=== PATIENT | male | born 1970 | race Caucasian/White ===

== ENCOUNTER 2017-11-28 18:36 | Emergency (ER) | payer MEDICAID ==
[2017-11-28] MEDS ORDERED: Bupivacaine 0.5% 30 ML SDV INFILT ONE (18:37)
[2017-11-28] MEDS ORDERED: Ketorolac 60 MG/2 ML SDV IM STA (18:38)
[2017-11-28] MEDS ORDERED: Morphine 4 MG/ML Syringe IVPUSH ONE ×2 (18:45→20:26)
[2017-11-28] MEDS ORDERED: Iopamidol 755 Mg/ML 100 ML Bottle IV ONE (18:49)
[2017-11-28] MEDS ORDERED: Ketorolac 30 MG/ML SDV IVPUSH ONE (18:51)
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
[2017-11-28] MEDS ORDERED: Sodium Chloride 0.9% 1,000 ML IV SCH (19:00)
[2017-11-28 22:07] VITALS: BP 195/107
[2017-11-28] MEDS ORDERED: Acetaminophen/oxyCODONE 325-5 MG Tab PO ONE (23:13)
[2017-11-28] MEDS ORDERED: Azithromycin 250 MG Tab PO ONE (23:13)
== END 2017-11-28 23:25 | disposition home or self-care (01) ==
LOC: FB.ED 18:36
DX: S02.2XXA Fracture of nasal bones, initial encounter for closed fracture (principal); S12.501A Unspecified nondisplaced fracture of sixth cervical vertebra, initial encounter for closed fracture; S01.21XA Laceration without foreign body of nose, initial encounter; S63.072A Subluxation of distal end of left ulna, initial encounter; S43.401A Unspecified sprain of right shoulder joint, initial encounter; E87.1 Hypo-osmolality and hyponatremia; J32.4 Chronic pansinusitis; F17.210 Nicotine dependence, cigarettes, uncomplicated; Z88.5 Allergy status to narcotic agent; W13.2XXA Fall from, out of or through roof, initial encounter
CPT/HCPCS: 12051; 36415; 70450; 70486; 71260; 72125; 72128; 72131; 73110-LT; 74177; 80048; 80305; 81001; 82550; 85025; 93005; 96361; 96374; 96375; 96376; 99285; A9270-GY; G0480; J1885; J2270; J7030; Q9967

== ENCOUNTER 2017-12-01 16:46 | Emergency (ER) | payer MEDICAID ==
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
[2017-12-01 17:18] VITALS: BP 169/82
[2017-12-01] MEDS ORDERED: Acetaminophen/HYDROcodone 325-5 MG Tab PO ONE (17:27)
== END 2017-12-01 17:40 | disposition home or self-care (01) ==
LOC: FB.ED 16:46
DX: S60.512A Abrasion of left hand, initial encounter (principal); S63.07 Subluxation and dislocation of distal end of ulna; F17.210 Nicotine dependence, cigarettes, uncomplicated; Z88.6 Allergy status to analgesic agent; X58.XXXA Exposure to other specified factors, initial encounter
CPT/HCPCS: 99282; A9270

== ENCOUNTER 2018-12-19 21:16 | Emergency (ER) | payer MEDICAID, OTHER ==
[2018-12-19] MEDS ORDERED: Lidocaine 1% 20 ML MDV INFILT ONE (21:17)
--- NOTE | 2018-12-19 23:00 | EDM.PDOC ---
ED HPI GENERAL MEDICAL PROBLEM - General Chief Complaint: Skin Complaint Stated Complaint: CYST ON THIGH Time Seen by Provider: 12/19/18 22:35 Source of Information: Reports: Patient History Limitations: Reports: No Limitations - History of Present Illness INITIAL COMMENTS - FREE TEXT/NARRATIVE: 48-year-old male who reports about a week ago developed swelling, redness and pain over his right medial thigh. This area has gotten bigger and more painful with time. He reports initially that there was some drainage from the area but now there is no more drainage and it has gotten progressively bigger and more painful as time. He reports pain as an 8/10 at present. The pain is a sharp, aching and throbbing pain He's had no fever. He's had no nausea or vomiting. He does have diabetes mellitus, on metformin and reports that his blood sugars of been in the 100 range when he checks them. He reports he just checked his blood sugar this morning. There are no other associated signs or symptoms. There are no other modifying factors. 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: Other (see below) (Nothing) inner right thigh Pain Score (Numeric/FACES): 7 - Related Data Allergies Allergy/AdvReac Type Severity Reaction Status Date / Time tramadol Allergy Rash Verified 12/19/18 21:28 Home Meds: Home Meds Aspirin [Lo-Dose Aspirin EC] 81 mg PO DAILY 12/19/18 [History] Doxycycline Hyclate 100 mg PO BID 10 Days #20 tablet 12/19/18 [Rx] Lisinopril 10 mg PO DAILY 12/19/18 [History] metFORMIN [Glucophage] 500 mg PO BID 12/19/18 [History] traMADol [Ultram] 50 mg PO TID PRN 12/19/18 [History] Past Medical History HEENT History: Reports: Other (See Below) Other HEENT History: poor dentition Musculoskeletal History: Reports: Back Pain, Chronic Endocrine/Metabolic History: Reports: Diabetes, Type II - Past Surgical History GI Surgical History: Reports: Cholecystectomy, Hernia, Inguinal Musculoskeletal Surgical History: Reports: Other (See Below) (Left wrist surgery ) Other Musculoskeletal Surgeries/Procedures:: BACK INJECTION Social & Family History - Tobacco Use Smoking Status *Q: Current Every Day Smoker Years of Tobacco use: 35 Packs/Tins Daily: 1 - Caffeine Use Caffeine Use: Reports: Coffee, Energy Drinks - Alcohol Use Alcohol Use History: Yes Alcohol Use Frequency: Socially - Recreational Drug Use Recreational Drug Use: No - Living Situation & Occupation Social History Comment: Here by himself. ED ROS GENERAL - Review of Systems Review Of Systems: See Below Constitutional: Reports: No Symptoms HEENT: Reports: No Symptoms Respiratory: Reports: No Symptoms Cardiovascular: Reports: No Symptoms Endocrine: Reports: No Symptoms GI/Abdominal: Reports: No Symptoms : Reports: No Symptoms Musculoskeletal: Reports: No Symptoms Skin: Reports: Other (Erythematous and swollen area on right mid thigh) Neurological: Reports: No Symptoms Hematologic/Lymphatic: Reports: No Symptoms Immunologic: Reports: No Symptoms ED EXAM, SKIN/RASH Exam: See Below Exam Limited By: No Limitations General Appearance: Alert, WD/WN, Mild Distress Eye Exam: Bilateral Eye: EOMI, Normal Inspection, PERRL Ears: Normal External Exam, Hearing Grossly Normal Nose: Normal Inspection, Normal Mucosa, No Blood Throat/Mouth: Normal Inspection, Normal Oropharynx, Normal Voice, No Airway Compromise Head: Atraumatic, Normocephalic Neck: Normal Inspection, Supple, Non-Tender, Full Range of Motion Respiratory/Chest: No Respiratory Distress, Lungs Clear, Normal Breath Sounds, No Accessory Muscle Use, Chest Non-Tender Cardiovascular: Normal Peripheral Pulses, Regular Rate, Rhythm, No JVD GI/Abdominal: Normal Bowel Sounds, Soft, Non-Tender, No Organomegaly, No Mass Back Exam: Normal Inspection Extremities: Normal Capillary Refill Neurological: Alert, Oriented, CN II-XII Intact, Normal Cognition, No Motor/ Sensory Deficits Skin: Warm, Dry, Erythema (Over right medial thigh), Increased Warmth ( Overwrite medial thigh) Location, Skin: Lower Extremity, Right (Right medial thigh) Characteristics: Erythematous Associated features: Warmth, Tenderness, Swelling (With fluctuance), Induration , Inflammation ED SKIN PROCEDURES - I&D Site: Right medial thigh Skin Prep: Providone-Iodine (Betadine) Local Anesthesia: Lidocaine: 1% Plain (to effect field block around the abscess and the skin overlying the abscess.) Local Anesthetic Volume: Other (10 mL, good anesthesia, no complications) Area Incised With: 11 Blade Drainage: Purulent, Moderate Amount, Other (Wound copiously irrigated with Betadine tinged normal saline; wound culture sent.) Probed to Break Up Loculations: Yes Packed With: 1/2 in. Iodoform Sterile Dressinx4(s) Complications: No Course - Vital Signs Last Recorded V/S: Last Vital Signs Temp 36.7 C 12/19/18 21:24 Pulse 81 12/19/18 21:24 Resp 20 12/19/18 21:24 BP 102/60 12/19/18 21:24 Pulse Ox 99 12/19/18 21:24 - Orders/Labs/Meds Orders: Active Orders 24 hr Category Date Time Status Blood Glucose Check, Bedside [RC] ONETIME Care 12/19/18 23:28 Active CULTURE ROUTINE + SMEAR [RM] Stat Lab 12/19/18 23:25 Received Meds: Medications Discontinued Medications Generic Name Dose Route Start Last Admin Trade Name Marco Antonio PRN Reason Stop Dose Admin Doxycycline Hyclate 200 mg 12/19/18 23:30 Vibra-Tabs PO 12/19/18 23:31 ONETIME ONE Departure - Departure Time of Disposition: 23:35 Disposition: Home, Self-Care 01 Condition: Good Clinical Impression: Abscess of right thigh, Infected sebaceous cyst of skin Cellulitis Qualifiers: Site of cellulitis: extremity Site of cellulitis of extremity: lower extremity Laterality: right Qualified Code(s): L03.115 - Cellulitis of right lower limb - Discharge Information Prescriptions: Doxycycline Hyclate 100 mg PO BID 10 Days #20 tablet Instructions: Skin Abscess, [id number], Cellulitis, Adult, [id number], Incision and Drainage, Care After Referrals: Filemon Sosa MD [Primary Care Provider] - Forms: ED Department Discharge Additional Instructions: You have an abscess on your right thigh. It appears to have been a sebaceous cyst abscess. The abscess was incised and drained and packing was placed inside. Leave the packing in place until Saturday. On Saturday morning, remove the packing and wash the wound in the shower with soap and lots of water. After cleaning the wound, place a wick of the packing into the abscess cavity as you were shown in the emergency department. You should do this daily until the wound has closed over. Medication as prescribed (doxycycline 100 mg). Take probiotics or eat yogurt daily while you are on the antibiotics. Follow-up with your primary doctor this next week for wound recheck. Back to the emergency department for increasing redness, increased swelling, high fever, unrelenting vomiting or any other concerning sign or symptom. - My Orders Last 24 Hours: My Active Orders 12/19/18 23:25 CULTURE ROUTINE + SMEAR [RM] Stat 12/19/18 23:28 Blood Glucose Check, Bedside [RC] ONETIME - Assessment/Plan Last 24 Hours: My Active Orders 12/19/18 23:25 CULTURE ROUTINE + SMEAR [RM] Stat 12/19/18 23:28 Blood Glucose Check, Bedside [RC] ONETIME
[2018-12-19] MEDS ORDERED: Doxycycline 100 MG Tab PO ONE (23:30)
[2018-12-20 01:46] VITALS: BP 110/66
== END 2018-12-19 23:45 | disposition home or self-care (01) ==
LOC: FB.ED 21:16
DX: L02.415 Cutaneous abscess of right lower limb (principal); L03.115 Cellulitis of right lower limb; L72.3 Sebaceous cyst; L08.9 Local infection of the skin and subcutaneous tissue, unspecified; E11.9 Type 2 diabetes mellitus without complications; F17.210 Nicotine dependence, cigarettes, uncomplicated; Z79.899 Other long term (current) drug therapy; Z88.5 Allergy status to narcotic agent; Z79.82 Long term (current) use of aspirin; Z79.4 Long term (current) use of insulin
CPT/HCPCS: 10060; 10061; 82962; 87070; 87077; 87186; 87205; 99283-25; J2001

== ENCOUNTER 2019-06-17 19:38 | Emergency (ER) | payer MEDICAID ==
[2019-06-17 19:52] VITALS: BP 154/90; PULSE 83
--- NOTE | 2019-06-17 19:56 | EDM.PDOC ---
ED HPI GENERAL MEDICAL PROBLEM - General Chief Complaint: General Stated Complaint: INFECTED TOOTH Time Seen by Provider: 06/17/19 19:53 Source of Information: Reports: Patient History Limitations: Reports: No Limitations - History of Present Illness INITIAL COMMENTS - FREE TEXT/NARRATIVE: Jhon complains left lower jaw pain x 3 days.Moderate to severe. No fever. Took one dose of Amoxil from a previous script. TOOTH Pain Score (Numeric/FACES): 7 - Related Data Allergies Allergy/AdvReac Type Severity Reaction Status Date / Time tramadol Allergy Rash Verified 12/19/18 21:28 Home Meds: Home Meds Aspirin [Lo-Dose Aspirin EC] 81 mg PO DAILY 12/19/18 [History] Lisinopril 10 mg PO DAILY 12/19/18 [History] metFORMIN [Glucophage] 500 mg PO BID 12/19/18 [History] Past Medical History - Past Health History Medical/Surgical History: Denies Medical/Surgical History HEENT History: Reports: Other (See Below) Other HEENT History: poor dentition Musculoskeletal History: Reports: Back Pain, Chronic Endocrine/Metabolic History: Reports: Diabetes, Type II - Past Surgical History GI Surgical History: Reports: Cholecystectomy, Hernia, Inguinal Musculoskeletal Surgical History: Reports: Other (See Below) (Left wrist surgery ) Other Musculoskeletal Surgeries/Procedures:: BACK INJECTION Social & Family History - Family History Family Medical History: Noncontributory - Caffeine Use Caffeine Use: Reports: Coffee, Energy Drinks ED ROS GENERAL - Review of Systems Review Of Systems: Comprehensive ROS is negative, except as noted in HPI. ED EXAM, GENERAL - Physical Exam Exam: See Below Free Text/Narrative:: Poor dentition. Dental abscess on the left jaw tooth #22. Tender gum. Exam Limited By: No Limitations General Appearance: Alert Throat/Mouth: Normal Inspection Head: Atraumatic Course - Vital Signs Last Recorded V/S: Last Vital Signs Temp 98 F 06/17/19 19:44 Pulse 83 06/17/19 19:44 Resp 18 06/17/19 19:44 BP 154/90 H 06/17/19 19:44 Pulse Ox 100 06/17/19 19:44 Departure - Departure Time of Disposition: 19:55 Disposition: Home, Self-Care 01 Condition: Good Clinical Impression: Dental abscess - Discharge Information Referrals: Filemon Sosa MD [Primary Care Provider] - - Problem List & Annotations (1) Dental abscess SNOMED Code(s): 971922728 Code(s): K04.7 - PERIAPICAL ABSCESS WITHOUT SINUS Status: Acute - Problem List Review Problem List Initiated/Reviewed/Updated: Yes - Assessment/Plan Plan: PCN VK 500 mg tid. T #3 one tab tid. Follow up with Dentist.,
== END 2019-06-17 20:25 | disposition home or self-care (01) ==
LOC: FB.ED 19:38
DX: K04.7 Periapical abscess without sinus (principal); E11.9 Type 2 diabetes mellitus without complications; Z88.6 Allergy status to analgesic agent; Z79.82 Long term (current) use of aspirin; Z79.84 Long term (current) use of oral hypoglycemic drugs
CPT/HCPCS: 99283

== ENCOUNTER 2019-07-09 18:53 | Emergency (ER) | payer MEDICAID ==
[2019-07-09 19:10] VITALS: BP 144/76; PULSE 65
[2019-07-09] MEDS ORDERED: Amoxicillin 500 MG Cap PO ONE (19:31)
[2019-07-09] MEDS ORDERED: Acetaminophen 500 MG Tab PO ONE (19:31)
--- NOTE | 2019-07-09 19:40 | EDM.PDOC ---
ED HPI GENERAL MEDICAL PROBLEM - General Chief Complaint: General Stated Complaint: TEETH PAIN Time Seen by Provider: 07/09/19 19:20 Source of Information: Reports: Patient History Limitations: Reports: No Limitations - History of Present Illness INITIAL COMMENTS - FREE TEXT/NARRATIVE: Patient presented to the ED because of dental pain for 3 days. He rates the pain /, took OTC ibuprofen without any relief. 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 Left sided tooth pain Pain Score (Numeric/FACES): 8 - Related Data Allergies Allergy/AdvReac Type Severity Reaction Status Date / Time tramadol Allergy Rash Verified 07/09/19 19:03 Home Meds: Home Meds Aspirin [Lo-Dose Aspirin EC] 81 mg PO DAILY 12/19/18 [History] Lisinopril 10 mg PO DAILY 12/19/18 [History] metFORMIN [Glucophage] 500 mg PO BID 12/19/18 [History] Amoxicillin 875 mg PO BID #20 tablet 07/09/19 [Rx] Ibuprofen [Motrin] 800 mg PO Q8H PRN #30 tablet 07/09/19 [Rx] Past Medical History - Past Health History Medical/Surgical History: Denies Medical/Surgical History HEENT History: Reports: Other (See Below) Other HEENT History: poor dentition Musculoskeletal History: Reports: Back Pain, Chronic Endocrine/Metabolic History: Reports: Diabetes, Type II - Past Surgical History GI Surgical History: Reports: Cholecystectomy, Hernia, Inguinal Musculoskeletal Surgical History: Reports: Other (See Below) Other Musculoskeletal Surgeries/Procedures:: BACK INJECTION Social & Family History - Family History Family Medical History: Noncontributory - Tobacco Use Smoking Status *Q: Current Every Day Smoker Years of Tobacco use: 30 Packs/Tins Daily: 0.5 - Caffeine Use Caffeine Use: Reports: Coffee, Soda - Recreational Drug Use Recreational Drug Use: No ED ROS GENERAL - Review of Systems Review Of Systems: See Below Constitutional: Reports: No Symptoms HEENT: Reports: No Symptoms, Other (dental pain) Respiratory: Reports: No Symptoms Cardiovascular: Reports: No Symptoms Endocrine: Reports: No Symptoms GI/Abdominal: Reports: No Symptoms : Reports: No Symptoms Musculoskeletal: Reports: No Symptoms Skin: Reports: No Symptoms Neurological: Reports: No Symptoms Psychiatric: Reports: No Symptoms Hematologic/Lymphatic: Reports: No Symptoms Immunologic: Reports: No Symptoms ED EXAM, GENERAL - Physical Exam Exam: See Below Exam Limited By: No Limitations General Appearance: Alert, WD/WN, No Apparent Distress Ears: Normal External Exam, Normal Canal, Hearing Grossly Normal, Normal TMs Nose: Normal Inspection, Normal Mucosa, No Blood Throat/Mouth: Normal Inspection, Normal Lips, Normal Oropharynx, Other ( multiple dental caries, gingival swelling left upper and left lower molar area) Head: Atraumatic, Normocephalic Neck: Normal Inspection, Supple, Non-Tender, Full Range of Motion Respiratory/Chest: No Respiratory Distress, Lungs Clear, Normal Breath Sounds, No Accessory Muscle Use, Chest Non-Tender Cardiovascular: Normal Peripheral Pulses, Regular Rate, Rhythm, No Edema, No Gallop, No JVD, No Murmur, No Rub GI/Abdominal: Normal Bowel Sounds, Soft, Non-Tender, No Organomegaly, No Distention, No Abnormal Bruit, No Mass, Pelvis Stable Course - Vital Signs Text/Narrative:: ibuprofen 800 mg po x1 tylenol 1000 mg po x1 amoxicillin 500 mg po x1 viscous lidocaine 2% applied to the left upper and left lower molar area Last Recorded V/S: Last Vital Signs Temp 36.4 C 07/09/19 19:06 Pulse 65 07/09/19 19:06 Resp 16 07/09/19 19:06 BP 144/76 H 07/09/19 19:06 Pulse Ox 98 07/09/19 19:06 - Orders/Labs/Meds Meds: Medications Discontinued Medications Generic Name Dose Route Start Last Admin Trade Name Marco Antonio PRN Reason Stop Dose Admin Acetaminophen 1,000 mg 07/09/19 19:31 07/09/19 19:47 Tylenol Extra Strength PO 07/09/19 19:32 1,000 mg ONETIME ONE Administration Amoxicillin 500 mg 07/09/19 19:31 07/09/19 19:47 Amoxil PO 07/09/19 19:32 500 mg ONETIME ONE Administration Ibuprofen 800 mg 07/09/19 19:43 07/09/19 19:47 Motrin PO 07/09/19 19:44 800 mg ONETIME ONE Administration Lidocaine HCl 15 ml 07/09/19 19:43 07/09/19 19:48 Xylocaine 2% Viscous PO 07/09/19 19:44 15 ml ONETIME ONE Administration Departure - Departure Time of Disposition: 19:35 Disposition: Home, Self-Care 01 Condition: Good Clinical Impression: Dental infection - Discharge Information Prescriptions: Amoxicillin 875 mg PO BID #20 tablet Ibuprofen [Motrin] 800 mg PO Q8H PRN #30 tablet PRN Reason: Pain Instructions: Gingivitis, [id number] Referrals: Filemon Sosa MD [Primary Care Provider] - Forms: ED Department Discharge Additional Instructions: Please read discharge instructions on gum infection and tooth ache gurgle with salt and water amoxicillin 875 mg twice daily for 10 days Take ibuprofen 800 mg with tylenol 1000 mg every 8 hours as needed for pain Follow up with your dentist as soon as you can
[2019-07-09] MEDS ORDERED: Lidocaine 2% Viscous Solution 15 ML Cup PO ONE (19:43)
[2019-07-09] MEDS ORDERED: Ibuprofen 800 MG Tab PO ONE (19:43)
== END 2019-07-09 20:05 | disposition home or self-care (01) ==
LOC: FB.ED 18:53
DX: K04.7 Periapical abscess without sinus (principal); K02.9 Dental caries, unspecified; E11.9 Type 2 diabetes mellitus without complications; Z79.82 Long term (current) use of aspirin; Z79.84 Long term (current) use of oral hypoglycemic drugs; Z79.899 Other long term (current) drug therapy; Z88.6 Allergy status to analgesic agent
CPT/HCPCS: 99282; A9270-GY

== ENCOUNTER 2020-03-13 14:35 | Emergency (ER) | payer MEDICAID ==
--- NOTE | 2020-03-13 15:04 | EDM.PDOC ---
ED HPI GENERAL MEDICAL PROBLEM - General Chief Complaint: General Stated Complaint: TEETH BOTHERING HIM Time Seen by Provider: 03/13/20 14:50 Source of Information: Reports: Patient History Limitations: Reports: No Limitations - History of Present Illness INITIAL COMMENTS - FREE TEXT/NARRATIVE: pt c/o left upper and lower jaw dental pain, worse in the upper side, has been going on for 1 week, denies fever chills or any other associated sx or concerns, was seen for this here a week ago abd started on pen V , tells me this is not helping. 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 L upper & lower jaw Pain Score (Numeric/FACES): 9 - Related Data Allergies Allergy/AdvReac Type Severity Reaction Status Date / Time tramadol Allergy Rash Verified 03/13/20 14:43 Home Meds: Home Meds Aspirin [Lo-Dose Aspirin EC] 81 mg PO DAILY 12/19/18 [History] Lisinopril 10 mg PO DAILY 12/19/18 [History] metFORMIN [Glucophage] 500 mg PO BID 12/19/18 [History] Ibuprofen [Motrin] 800 mg PO Q8H PRN #30 tablet 07/09/19 [Rx] Penicillin V Potassium [Veetids] 1,000 mg BID 03/13/20 [History] Rosuvastatin [Crestor] 10 mg PO DAILY 03/13/20 [History] Past Medical History - Past Health History Medical/Surgical History: Denies Medical/Surgical History HEENT History: Reports: Other (See Below) Other HEENT History: poor dentition Cardiovascular History: Reports: High Cholesterol, Hypertension Musculoskeletal History: Reports: Back Pain, Chronic Endocrine/Metabolic History: Reports: Diabetes, Type II - Past Surgical History GI Surgical History: Reports: Cholecystectomy, Hernia, Inguinal Musculoskeletal Surgical History: Reports: Other (See Below) Other Musculoskeletal Surgeries/Procedures:: BACK INJECTION Social & Family History - Family History Family Medical History: Noncontributory - Tobacco Use Smoking Status *Q: Current Every Day Smoker Years of Tobacco use: 30 Packs/Tins Daily: 0.4 - Caffeine Use Caffeine Use: Reports: Coffee, Soda ED ROS GENERAL - Review of Systems Review Of Systems: See Below Constitutional: Reports: No Symptoms. Denies: Fever, Chills HEENT: Reports: Dental Pain, Glasses. Denies: Eye Pain, Sinus Problem Respiratory: Reports: No Symptoms Cardiovascular: Reports: No Symptoms GI/Abdominal: Reports: No Symptoms ED EXAM, GENERAL - Physical Exam Exam: See Below Exam Limited By: No Limitations General Appearance: Alert, Mild Distress Eye Exam: Bilateral Eye: Normal Inspection Ears: Normal External Exam Nose: Normal Inspection, Normal Mucosa Throat/Mouth: Normal Inspection, Other (pt has lost most of his teeth, and has extenssive decay in what is left also tendernss at the decayed left upper molars) Head: Atraumatic, Normocephalic Neck: Normal Inspection, Supple. No: Lymphadenopathy (R), Lymphadenopathy (L) Respiratory/Chest: No Respiratory Distress, Lungs Clear, Normal Breath Sounds Cardiovascular: Normal Peripheral Pulses, Regular Rate, Rhythm GI/Abdominal: Normal Bowel Sounds, Soft, Non-Tender Extremities: Normal Inspection, Normal Range of Motion Neurological: Alert, Oriented, CN II-XII Intact Course - Vital Signs Text/Narrative:: pt has extensive dental crises and decay , also likely infection at left upper molars , no palpable abscess on exam. pt was given rx on clindamycin and hydrocodone 15 tabs and was asked to schedule follow up with a dentist. Last Recorded V/S: Last Vital Signs Temp 36.6 C 03/13/20 14:38 Pulse 77 03/13/20 14:38 Resp 18 03/13/20 14:38 BP 151/75 H 03/13/20 14:38 Pulse Ox 97 03/13/20 14:38 Departure - Departure Time of Disposition: 15:04 Disposition: Home, Self-Care 01 Clinical Impression: Dental infection - Discharge Information Referrals: Filemon Sosa MD [Primary Care Provider] - Sepsis Event Note (ED) - Evaluation Sepsis Screening Result: No Definite Risk - Focused Exam Vital Signs: Vital Signs Temp Pulse Resp BP Pulse Ox 03/13/20 14:38 36.6 C 77 18 151/75 H 97
[2020-03-13 15:36] VITALS: BP 145/79; PULSE 80
== END 2020-03-13 15:32 | disposition home or self-care (01) ==
LOC: FB.ED 14:35
DX: K04.7 Periapical abscess without sinus (principal); K02.9 Dental caries, unspecified; F17.210 Nicotine dependence, cigarettes, uncomplicated; E78.00 Pure hypercholesterolemia, unspecified; I10 Essential (primary) hypertension; E11.9 Type 2 diabetes mellitus without complications; Z79.84 Long term (current) use of oral hypoglycemic drugs; Z88.5 Allergy status to narcotic agent; Z79.82 Long term (current) use of aspirin; Z79.899 Other long term (current) drug therapy
CPT/HCPCS: 99282

== ENCOUNTER 2020-09-25 18:19 | Observation (INO) | payer MEDICAID ==
[2020-09-25] MEDS ORDERED: Pantoprazole 40 MG Vial IVPUSH ONE (18:33)
[2020-09-25] MEDS ORDERED: Ondansetron 4 MG/2 ML SDV IVPUSH ONE (18:33)
--- NOTE | 2020-09-25 18:36 | EDM.PDOC ---
ED HPI GENERAL MEDICAL PROBLEM - General Chief Complaint: Abdominal Pain Stated Complaint: ABDOMINAL PAIN Time Seen by Provider: 09/25/20 18:33 Source of Information: Reports: Patient History Limitations: Reports: No Limitations - History of Present Illness INITIAL COMMENTS - FREE TEXT/NARRATIVE: Patient complains of LLQ abdominal pain radiating to back x 24 hours, associated with nausea, no vomiting. Patient has been constipated. Denies h/o kidney stones. Past surgical history include cholecystectomy. Denies alcohol abuse. Onset Date: 09/24/20 Location: Reports: Abdomen Severity: Moderate left upper and lower quadrant abdominal pain Pain Score (Numeric/FACES): 8 - Related Data Allergies Allergy/AdvReac Type Severity Reaction Status Date / Time tramadol Allergy Rash Verified 09/25/20 19:24 Home Meds: Home Meds Aspirin [Lo-Dose Aspirin EC] 81 mg PO DAILY 12/19/18 [History] Lisinopril 10 mg PO DAILY 12/19/18 [History] metFORMIN [Glucophage] 500 mg PO BID 12/19/18 [History] Ibuprofen [Motrin] 800 mg PO Q8H PRN #30 tablet 07/09/19 [Rx] Clindamycin HCl 300 mg PO TID 10 Days #30 capsule 03/13/20 [Rx] Hydrocodone/Acetaminophen [Hydrocodon-Acetaminophen 5-325] 1 - 2 each PO Q6HR PRN #15 tablet 03/13/20 [Rx] Penicillin V Potassium [Veetids] 1,000 mg BID 03/13/20 [History] Rosuvastatin [Crestor] 10 mg PO DAILY 03/13/20 [History] Past Medical History HEENT History: Reports: Other (See Below) Other HEENT History: poor dentition Cardiovascular History: Reports: High Cholesterol, Hypertension Musculoskeletal History: Reports: Back Pain, Chronic Endocrine/Metabolic History: Reports: Diabetes, Type II - Past Surgical History GI Surgical History: Reports: Cholecystectomy, Hernia, Inguinal Musculoskeletal Surgical History: Reports: Other (See Below) Other Musculoskeletal Surgeries/Procedures:: BACK INJECTION Social & Family History - Family History Family Medical History: No Pertinent Family History - Tobacco Use Tobacco Use Status *Q: Current Every Day Tobacco User Tobacco Use Within Last Twelve Months: Cigarettes - Caffeine Use Caffeine Use: Reports: Coffee, Soda - Alcohol Use Alcohol Use History: No ED ROS GENERAL - Review of Systems Review Of Systems: Comprehensive ROS is negative, except as noted in HPI. ED EXAM, GI/ABD - Physical Exam Exam: See Below Exam Limited By: No Limitations General Appearance: Alert, WD/WN, No Apparent Distress Nose: Normal Inspection Throat/Mouth: No Airway Compromise Head: Atraumatic, Normocephalic Neck: Full Range of Motion Respiratory/Chest: No Respiratory Distress, Lungs Clear, Normal Breath Sounds Cardiovascular: Regular Rate, Rhythm, No Gallop, No Murmur GI/Abdominal Exam: Normal Bowel Sounds, Soft, No Distention, Tender (LLQ). No: Guarding Back Exam: No: CVA Tenderness (R), CVA Tenderness (L) Extremities: Normal Range of Motion Neurological: Alert, Normal Cognition Psychiatric: Normal Affect, Normal Mood Skin Exam: Warm, Dry, Intact Course - Vital Signs Last Recorded V/S: Last Vital Signs Temp 36.7 C 09/25/20 18:20 Pulse 73 09/25/20 18:20 Resp 17 09/25/20 18:20 BP 158/88 H 09/25/20 18:20 Pulse Ox 98 09/25/20 18:20 - Orders/Labs/Meds Orders: Active Orders 24 hr Category Date Time Status Admission Status [Patient Status] [ADT] Routine ADT 09/25/20 20:40 Ordered Abdomen Pelvis w Cont [CT] Stat Exams 09/25/20 19:35 Taken Sodium Chloride 0.9% [Saline Flush] Med 09/25/20 18:27 Active 10 ml FLUSH ASDIRECTED PRN Saline Lock Insert [OM.PC] Routine Oth 09/25/20 18:27 Ordered Medication Orders Sodium Chloride (Saline Flush) 10 ml FLUSH ASDIRECTED PRN PRN Reason: Keep Vein Open Last Admin: 09/25/20 18:49 Dose: 10 ml Documented by: JYOTI Labs: Laboratory Tests 09/25/20 09/25/20 09/25/20 Range/Units 18:50 18:50 18:50 WBC 10.7 H (3.2-10.1) x10-3/uL RBC 4.93 (3.90-5.90) x10(6)uL Hgb 14.7 (12.9-17.7) g/dL Hct 43.6 (38.3-50.1) % MCV 88.3 (80.8-98.7) fL MCH 29.8 (27.0-33.3) pg MCHC 33.7 (28.7-35.3) g/dL RDW 13.4 (12.4-15.0) % Plt Count 307 (117-477) x10(3)uL MPV 7.7 (6.7-11.0) fL Neut % (Auto) 61.4 (40.3-71.8) % Lymph % (Auto) 27.5 (15.8-45.3) % Bailey % (Auto) 7.1 (5.5-15.2) % Eos % (Auto) 3.1 (0.1-6.8) % Baso % (Auto) 0.9 (0.3-3.8) % Neut # (Auto) 6.5 (1.7-6.9) x10-3/uL Lymph # (Auto) 2.9 (0.5-4.5) x10-3/uL Bailey # (Auto) 0.8 (0.0-1.2) x10-3/uL Eos # (Auto) 0.3 (0.0-0.6) x10-3/uL Baso # (Auto) 0.1 (0.0-0.3) x10-3/uL Sodium 137 (135-145) mmol/L Potassium 4.0 (3.5-5.3) mmol/L Chloride 104 D (100-110) mmol/L Carbon Dioxide 24 (21-32) mmol/L BUN 20 H (7-18) mg/dL Creatinine 0.9 (0.70-1.30) mg/dL Est Cr Clr Drug Dosing TNP Estimated GFR (MDRD) > 60 (>60) BUN/Creatinine Ratio 22.2 H (9-20) Glucose 134 H (80-116) mg/dL Calcium 8.3 L (8.6-10.2) mg/dL Magnesium (1.8-2.5) mg/dL Total Bilirubin 0.3 (0.1-1.3) mg/dL AST 27 H (5-25) IU/L ALT 46 H (12-36) U/L Alkaline Phosphatase 74 (56-112) IU/L Total Protein 7.4 (6.0-8.0) g/dL Albumin 3.8 (3.5-5.2) g/dL Globulin 3.6 g/dL Albumin/Globulin Ratio 1.1 Triglycerides (15-150) mg/dL Cholesterol (50-200) mg/dL LDL Cholesterol Direct (60-130) mg/dL HDL Cholesterol (40-75) mg/dL Cholesterol/HDL Ratio (0-5) Lipase 918 H (73-393) U/L Urine Color (YELLOW) Urine Appearance (CLEAR) Urine pH (5.0-6.5) Ur Specific [place] (1.010-1.025) Urine Protein (NEGATIVE) mg/dL Urine Glucose (UA) (NORMAL) mg/dL Urine Ketones (NEGATIVE) mg/dL Urine Occult Blood (NEGATIVE) Urine Nitrite (NEGATIVE) Urine Bilirubin (NEGATIVE) Urine Urobilinogen (NEGATIVE) mg/dL Ur Leukocyte Esterase (NEGATIVE) Urine RBC (0-5) Urine WBC (0-5) Ur Squamous Epith Cells (NS,R,O) Urine Bacteria (NS) Ethyl Alcohol (<0.03) % 09/25/20 09/25/20 09/25/20 Range/Units 18:50 19:30 20:00 WBC (3.2-10.1) x10-3/uL RBC (3.90-5.90) x10(6)uL Hgb (12.9-17.7) g/dL Hct (38.3-50.1) % MCV (80.8-98.7) fL MCH (27.0-33.3) pg MCHC (28.7-35.3) g/dL RDW (12.4-15.0) % Plt Count (117-477) x10(3)uL MPV (6.7-11.0) fL Neut % (Auto) (40.3-71.8) % Lymph % (Auto) (15.8-45.3) % Bailey % (Auto) (5.5-15.2) % Eos % (Auto) (0.1-6.8) % Baso % (Auto) (0.3-3.8) % Neut # (Auto) (1.7-6.9) x10-3/uL Lymph # (Auto) (0.5-4.5) x10-3/uL Bailey # (Auto) (0.0-1.2) x10-3/uL Eos # (Auto) (0.0-0.6) x10-3/uL Baso # (Auto) (0.0-0.3) x10-3/uL Sodium (135-145) mmol/L Potassium (3.5-5.3) mmol/L Chloride (100-110) mmol/L Carbon Dioxide (21-32) mmol/L BUN (7-18) mg/dL Creatinine (0.70-1.30) mg/dL Est Cr Clr Drug Dosing Estimated GFR (MDRD) (>60) BUN/Creatinine Ratio (9-20) Glucose (80-116) mg/dL Calcium (8.6-10.2) mg/dL Magnesium 1.8 (1.8-2.5) mg/dL Total Bilirubin (0.1-1.3) mg/dL AST (5-25) IU/L ALT (12-36) U/L Alkaline Phosphatase (56-112) IU/L Total Protein (6.0-8.0) g/dL Albumin (3.5-5.2) g/dL Globulin g/dL Albumin/Globulin Ratio Triglycerides 158 H (15-150) mg/dL Cholesterol 148 (50-200) mg/dL LDL Cholesterol Direct 80 (60-130) mg/dL HDL Cholesterol 45 (40-75) mg/dL Cholesterol/HDL Ratio 3.3 (0-5) Lipase (73-393) U/L Urine Color Yellow (YELLOW) Urine Appearance Clear (CLEAR) Urine pH 6.0 (5.0-6.5) Ur Specific [place] 1.020 (1.010-1.025) Urine Protein Negative (NEGATIVE) mg/dL Urine Glucose (UA) 250 H (NORMAL) mg/dL Urine Ketones Negative (NEGATIVE) mg/dL Urine Occult Blood Negative (NEGATIVE) Urine Nitrite Negative (NEGATIVE) Urine Bilirubin Negative (NEGATIVE) Urine Urobilinogen Normal (NEGATIVE) mg/dL Ur Leukocyte Esterase Negative (NEGATIVE) Urine RBC 0-5 (0-5) Urine WBC 0-5 (0-5) Ur Squamous Epith Cells Not seen (NS,R,O) Urine Bacteria Not seen (NS) Ethyl Alcohol < 0.03 (<0.03) % Meds: Medications Generic Name Dose Route Start Last Admin Trade Name Freq PRN Reason Stop Dose Admin Sodium Chloride 10 ml 09/25/20 18:27 09/25/20 18:49 Saline Flush FLUSH 10 ml ASDIRECTED PRN Administration Keep Vein Open Discontinued Medications Generic Name Dose Route Start Last Admin Trade Name Marco Antonio PRN Reason Stop Dose Admin Hydromorphone HCl 1 mg 09/25/20 20:39 Dilaudid IVPUSH 09/25/20 20:40 ONETIME ONE Sodium Chloride 1,000 mls @ 999 mls/hr 09/25/20 19:37 09/25/20 20:06 Normal Saline IV 09/25/20 20:37 999 mls/hr .BOLUS ONE Administration Iopamidol 100 ml 09/25/20 19:41 09/25/20 19:48 Isovue-370 (76%) IV 09/25/20 19:42 100 ml ONETIME ONE Administration Ondansetron HCl 4 mg 09/25/20 18:33 09/25/20 18:49 Zofran IVPUSH 09/25/20 18:34 4 mg ONETIME ONE Administration Pantoprazole Sodium 40 mg 09/25/20 18:33 09/25/20 18:48 Protonix Iv IVPUSH 09/25/20 18:34 40 mg ONETIME ONE Administration - Radiology Interpretation Free Text/Narrative:: CT Abd/Pelvis w/ IV contrast: Impression: 1. No acute findings in the abdomen or pelvis. 2. Diverticulosis. 3. Several pulmonary nodules measuring up to 5 millimeters are also stable from 2018. 4. Enlarged prostate gland. Dictated by Maria De Jesus Stone MD @ Sep 25 2020 8:25PM. Departure - Departure Time of Disposition: 20:41 Disposition: Refer to Observation Condition: Fair Clinical Impression: Pancreatitis, acute Qualifiers: Pancreatitis type: unspecified pancreatitis type Acute pancreatitis complication: no infection or necrosis Qualified Code(s): K85.90 - Acute pancreatitis without necrosis or infection, unspecified - Discharge Information *PRESCRIPTION DRUG MONITORING PROGRAM REVIEWED*: No *COPY OF PRESCRIPTION DRUG MONITORING REPORT IN PATIENT NATALY: Not Applicable Referrals: Filemon Sosa MD [Primary Care Provider] - Forms: ED Department Discharge Sepsis Event Note (ED) - Focused Exam Vital Signs: Vital Signs Temp Pulse Resp BP Pulse Ox 09/25/20 18:20 36.7 C 73 17 158/88 H 98 - My Orders Last 24 Hours: My Active Orders 09/25/20 18:27 Sodium Chloride 0.9% [Saline Flush] 10 ml FLUSH ASDIRECTED PRN Saline Lock Insert [OM.PC] Routine 09/25/20 19:35 Abdomen Pelvis w Cont [CT] Stat 09/25/20 20:40 Admission Status [Patient Status] [ADT] Routine - Assessment/Plan Last 24 Hours: My Active Orders 09/25/20 18:27 Sodium Chloride 0.9% [Saline Flush] 10 ml FLUSH ASDIRECTED PRN Saline Lock Insert [OM.PC] Routine 09/25/20 19:35 Abdomen Pelvis w Cont [CT] Stat 09/25/20 20:40 Admission Status [Patient Status] [ADT] Routine
[2020-09-25] MEDS: Sodium Chloride 0.9% 10 ML Syringe FLUSH PRN (18:49)
[2020-09-25] MEDS ORDERED: Sodium Chloride 0.9% 1,000 ML IV ONE (19:37)
[2020-09-25] MEDS ORDERED: Iopamidol 755 Mg/ML 100 ML Bottle IV ONE (19:41)
[2020-09-25] MEDS ORDERED: HYDROmorphone 2 MG/ML SDV IVPUSH ONE (20:39)
[2020-09-25] MEDS ORDERED: 50% Dextrose in Water 50 ML Syringe IVPUSH PRN (20:55)
[2020-09-25] MEDS ORDERED: Glucagon,Human Recombinant 1 MG Vial IM PRN (20:55)
[2020-09-25] MEDS: Sodium Chloride 0.9% 1,000 ML IV SCH (21:07)
[2020-09-25] MEDS: Insulin Lispro 100 Unit/ML 3 ML KwikPen SUBCUT SCH (22:35)
[2020-09-26] MEDS: Sodium Chloride 0.9% 1,000 ML IV SCH ×6 (00:54→22:39)
[2020-09-26] MEDS: HYDROmorphone 2 MG/ML SDV IVPUSH PRN ×4 (00:59→14:04)
[2020-09-26] MEDS: Insulin Lispro 100 Unit/ML 3 ML KwikPen SUBCUT SCH ×3 (07:27→17:11)
[2020-09-26] MEDS: Ondansetron 4 MG/2 ML SDV IV PRN ×2 (08:19→14:03)
[2020-09-26] MEDS ORDERED: Aspirin 81 MG Tab.EC PO SCH (09:00)
[2020-09-26] MEDS: Pantoprazole 40 MG Vial IVPUSH SCH ×2 (09:26→21:35)
[2020-09-26] MEDS: Lisinopril 10 MG Tab PO SCH (09:27)
[2020-09-26] MEDS: Rosuvastatin 10 MG Tab PO SCH (09:35)
[2020-09-26] MEDS: Ketorolac 30 MG/ML SDV IVPUSH SCH ×3 (10:56→21:38)
[2020-09-26] MEDS: Acetaminophen 1,000 MG in Premix Bag 1 BAG IV SCH ×3 (10:57→21:40)
[2020-09-26] MEDS ORDERED: Insulin Lispro 100 Unit/ML 3 ML KwikPen SUBCUT ONE (11:18)
[2020-09-26] MEDS: Sodium Chloride 0.9% 10 ML Syringe FLUSH PRN (14:05)
--- NOTE | 2020-09-26 16:28 | PCM.HP.2 ---
H&P History of Present Illness - General Date of Service: 09/26/20 Admit Problem/Dx: Admission Diagnosis/Problem Admission Diagnosis/Problem Pancreatitis Source of Information: Patient, EMS Notes Reviewed - History of Present Illness Initial Comments - Free Text/Narative: Eleazar presented to [facility] ER yesterday with epigastric/LUQ abdominal pain radiating to back x 24 hours, associated with nausea, no vomiting. Denies any hematemesis, black or bloody stools. He has been constipated. Denies h/o kidney stones, dysuria, hematuria or frequency. Denies any shortness of breath, chest pain. No sinus symptoms. Medical History: hypertension & hyperlipidemia. Past surgical history include cholecystectomy. Denies alcohol abuse, last drink was a month ago. He smokes but has not had anything for a few days so declined a nicotine patch. In ER WBC was 10.7, Lipase 918, Covid negative. UA showed glucose, Alcohol was <0.03. CT abdomen/pelvis showed some pulmonary nodules, diverticulosis. left upper and lower quadrant abdominal pain Pain Score (Numeric/FACES): 7 - Related Data Allergies/Adverse Reactions: Allergies Allergy/AdvReac Type Severity Reaction Status Date / Time tramadol Allergy Rash Verified 09/25/20 19:24 Home Medications: Home Meds Aspirin [Lo-Dose Aspirin EC] 81 mg PO DAILY 12/19/18 [History] Lisinopril 10 mg PO DAILY 12/19/18 [History] Ibuprofen [Motrin] 800 mg PO Q8H PRN #30 tablet 07/09/19 [Rx] Rosuvastatin [Crestor] 10 mg PO DAILY 03/13/20 [History] Insuln Asp Prot/Insulin Aspart [NovoLOG Mix 70-30] 15 unit SQ ACDINNER 09/25/20 [History] Insuln Asp Prot/Insulin Aspart [NovoLOG Mix 70-30] 25 unit SQ ACBREAKFAST 09/25/20 [History] Past Medical History HEENT History: Reports: Other (See Below) Other HEENT History: poor dentition Cardiovascular History: Reports: High Cholesterol, Hypertension Respiratory History: Reports: Other (See Below) Other Respiratory History: chronic smoker. Musculoskeletal History: Reports: Back Pain, Chronic Endocrine/Metabolic History: Reports: Diabetes, Type II - Past Surgical History GI Surgical History: Reports: Cholecystectomy, Hernia, Inguinal Musculoskeletal Surgical History: Reports: Other (See Below) Other Musculoskeletal Surgeries/Procedures:: BACK INJECTION Social & Family History - Family History Family Medical History: No Pertinent Family History - Tobacco Use Tobacco Use Status *Q: Current Every Day Tobacco User Years of Tobacco use: 30 Packs/Tins Daily: 0.5 Second Hand Smoke Exposure: Yes - Caffeine Use Caffeine Use: Reports: Coffee, Energy Drinks, Soda - Recreational Drug Use Recreational Drug Use: No H&P Review of Systems - Review of Systems: Review Of Systems: Comprehensive ROS is negative, except as noted in HPI. Exam - Exam Exam: See Below - Vital Signs Vital Signs: Last Vital Signs Temp 98.4 F 09/26/20 12:00 Pulse 52 L 09/26/20 12:00 Resp 16 09/26/20 12:00 BP 140/79 09/26/20 12:00 Pulse Ox 97 09/26/20 12:00 Weight: 160 lb 7 oz - Exam General: Alert, Oriented, Cooperative. No: Mild Distress HEENT: PERRLA, Conjunctiva Clear, EOMI, Hearing Intact, Mucosa Moist & [place], Posterior Pharynx Clear Neck: Trachea Midline. No: Lymphadenopathy Lungs: Clear to Auscultation, Normal Respiratory Effort Cardiovascular: Regular Rate, Regular Rhythm GI/Abdominal Exam: Normal Bowel Sounds, Soft, No Distention, Guarding, Tender. No: Rigid, Rebound (Male) Exam: Deferred Rectal (Males) Exam: Deferred Extremities: No Pedal Edema Peripheral Pulses: 2+: Radial (L), Radial (R) Skin: Warm, Dry, Intact Neurological: Cranial Nerves Intact, Normal Speech, Normal Tone - Patient Data Lab Results Last 24 hrs: Laboratory Results - last 24 hr 09/25/20 09/25/20 09/25/20 Range/Units 18:50 18:50 18:50 WBC 10.7 H (3.2-10.1) x10-3/uL RBC 4.93 (3.90-5.90) x10(6)uL Hgb 14.7 (12.9-17.7) g/dL Hct 43.6 (38.3-50.1) % MCV 88.3 (80.8-98.7) fL MCH 29.8 (27.0-33.3) pg MCHC 33.7 (28.7-35.3) g/dL RDW 13.4 (12.4-15.0) % Plt Count 307 (117-477) x10(3)uL MPV 7.7 (6.7-11.0) fL Neut % (Auto) 61.4 (40.3-71.8) % Lymph % (Auto) 27.5 (15.8-45.3) % Vernon % (Auto) 7.1 (5.5-15.2) % Eos % (Auto) 3.1 (0.1-6.8) % Baso % (Auto) 0.9 (0.3-3.8) % Neut # (Auto) 6.5 (1.7-6.9) x10-3/uL Lymph # (Auto) 2.9 (0.5-4.5) x10-3/uL Vernon # (Auto) 0.8 (0.0-1.2) x10-3/uL Eos # (Auto) 0.3 (0.0-0.6) x10-3/uL Baso # (Auto) 0.1 (0.0-0.3) x10-3/uL Sodium 137 (135-145) mmol/L Potassium 4.0 (3.5-5.3) mmol/L Chloride 104 D (100-110) mmol/L Carbon Dioxide 24 (21-32) mmol/L BUN 20 H (7-18) mg/dL Creatinine 0.9 (0.70-1.30) mg/dL Est Cr Clr Drug Dosing TNP Estimated GFR (MDRD) > 60 (>60) BUN/Creatinine Ratio 22.2 H (9-20) Glucose 134 H (80-116) mg/dL Calcium 8.3 L (8.6-10.2) mg/dL Magnesium (1.8-2.5) mg/dL Total Bilirubin 0.3 (0.1-1.3) mg/dL AST 27 H (5-25) IU/L ALT 46 H (12-36) U/L Alkaline Phosphatase 74 (56-112) IU/L Total Protein 7.4 (6.0-8.0) g/dL Albumin 3.8 (3.5-5.2) g/dL Globulin 3.6 g/dL Albumin/Globulin Ratio 1.1 Triglycerides (15-150) mg/dL Cholesterol (50-200) mg/dL LDL Cholesterol Direct (60-130) mg/dL HDL Cholesterol (40-75) mg/dL Cholesterol/HDL Ratio (0-5) Lipase 918 H (73-393) U/L Urine Color (YELLOW) Urine Appearance (CLEAR) Urine pH (5.0-6.5) Ur Specific Cory (1.010-1.025) Urine Protein (NEGATIVE) mg/dL Urine Glucose (UA) (NORMAL) mg/dL Urine Ketones (NEGATIVE) mg/dL Urine Occult Blood (NEGATIVE) Urine Nitrite (NEGATIVE) Urine Bilirubin (NEGATIVE) Urine Urobilinogen (NEGATIVE) mg/dL Ur Leukocyte Esterase (NEGATIVE) Urine RBC (0-5) Urine WBC (0-5) Ur Squamous Epith Cells (NS,R,O) Urine Bacteria (NS) Ethyl Alcohol (<0.03) % SARS-CoV-2 RNA (ANDREW) (NEGATIVE) 09/25/20 09/25/20 09/25/20 Range/Units 18:50 19:30 20:00 WBC (3.2-10.1) x10-3/uL RBC (3.90-5.90) x10(6)uL Hgb (12.9-17.7) g/dL Hct (38.3-50.1) % MCV (80.8-98.7) fL MCH (27.0-33.3) pg MCHC (28.7-35.3) g/dL RDW (12.4-15.0) % Plt Count (117-477) x10(3)uL MPV (6.7-11.0) fL Neut % (Auto) (40.3-71.8) % Lymph % (Auto) (15.8-45.3) % Vernon % (Auto) (5.5-15.2) % Eos % (Auto) (0.1-6.8) % Baso % (Auto) (0.3-3.8) % Neut # (Auto) (1.7-6.9) x10-3/uL Lymph # (Auto) (0.5-4.5) x10-3/uL Vernon # (Auto) (0.0-1.2) x10-3/uL Eos # (Auto) (0.0-0.6) x10-3/uL Baso # (Auto) (0.0-0.3) x10-3/uL Sodium (135-145) mmol/L Potassium (3.5-5.3) mmol/L Chloride (100-110) mmol/L Carbon Dioxide (21-32) mmol/L BUN (7-18) mg/dL Creatinine (0.70-1.30) mg/dL Est Cr Clr Drug Dosing Estimated GFR (MDRD) (>60) BUN/Creatinine Ratio (9-20) Glucose (80-116) mg/dL Calcium (8.6-10.2) mg/dL Magnesium 1.8 (1.8-2.5) mg/dL Total Bilirubin (0.1-1.3) mg/dL AST (5-25) IU/L ALT (12-36) U/L Alkaline Phosphatase (56-112) IU/L Total Protein (6.0-8.0) g/dL Albumin (3.5-5.2) g/dL Globulin g/dL Albumin/Globulin Ratio Triglycerides 158 H (15-150) mg/dL Cholesterol 148 (50-200) mg/dL LDL Cholesterol Direct 80 (60-130) mg/dL HDL Cholesterol 45 (40-75) mg/dL Cholesterol/HDL Ratio 3.3 (0-5) Lipase (73-393) U/L Urine Color Yellow (YELLOW) Urine Appearance Clear (CLEAR) Urine pH 6.0 (5.0-6.5) Ur Specific Cory 1.020 (1.010-1.025) Urine Protein Negative (NEGATIVE) mg/dL Urine Glucose (UA) 250 H (NORMAL) mg/dL Urine Ketones Negative (NEGATIVE) mg/dL Urine Occult Blood Negative (NEGATIVE) Urine Nitrite Negative (NEGATIVE) Urine Bilirubin Negative (NEGATIVE) Urine Urobilinogen Normal (NEGATIVE) mg/dL Ur Leukocyte Esterase Negative (NEGATIVE) Urine RBC 0-5 (0-5) Urine WBC 0-5 (0-5) Ur Squamous Epith Cells Not seen (NS,R,O) Urine Bacteria Not seen (NS) Ethyl Alcohol < 0.03 (<0.03) % SARS-CoV-2 RNA (ANDREW) (NEGATIVE) 09/25/20 09/26/20 09/26/20 Range/Units 21:00 06:20 06:20 WBC 8.0 (3.2-10.1) x10-3/uL RBC 4.40 (3.90-5.90) x10(6)uL Hgb 13.2 (12.9-17.7) g/dL Hct 39.4 (38.3-50.1) % MCV 89.6 (80.8-98.7) fL MCH 29.9 (27.0-33.3) pg MCHC 33.4 (28.7-35.3) g/dL RDW 13.7 (12.4-15.0) % Plt Count 274 (117-477) x10(3)uL MPV 7.9 (6.7-11.0) fL Neut % (Auto) 60.1 (40.3-71.8) % Lymph % (Auto) 26.6 (15.8-45.3) % Vernon % (Auto) 8.1 (5.5-15.2) % Eos % (Auto) 2.8 (0.1-6.8) % Baso % (Auto) 2.4 (0.3-3.8) % Neut # (Auto) 4.8 (1.7-6.9) x10-3/uL Lymph # (Auto) 2.1 (0.5-4.5) x10-3/uL Vernon # (Auto) 0.6 (0.0-1.2) x10-3/uL Eos # (Auto) 0.2 (0.0-0.6) x10-3/uL Baso # (Auto) 0.2 (0.0-0.3) x10-3/uL Sodium 139 (135-145) mmol/L Potassium 4.0 (3.5-5.3) mmol/L Chloride 107 (100-110) mmol/L Carbon Dioxide 23 (21-32) mmol/L BUN 14 (7-18) mg/dL Creatinine 0.8 (0.70-1.30) mg/dL Est Cr Clr Drug Dosing 104.50 Estimated GFR (MDRD) > 60 (>60) BUN/Creatinine Ratio 17.5 (9-20) Glucose 136 H (80-116) mg/dL Calcium 7.9 L (8.6-10.2) mg/dL Magnesium (1.8-2.5) mg/dL Total Bilirubin (0.1-1.3) mg/dL AST (5-25) IU/L ALT (12-36) U/L Alkaline Phosphatase (56-112) IU/L Total Protein (6.0-8.0) g/dL Albumin (3.5-5.2) g/dL Globulin g/dL Albumin/Globulin Ratio Triglycerides (15-150) mg/dL Cholesterol (50-200) mg/dL LDL Cholesterol Direct (60-130) mg/dL HDL Cholesterol (40-75) mg/dL Cholesterol/HDL Ratio (0-5) Lipase (73-393) U/L Urine Color (YELLOW) Urine Appearance (CLEAR) Urine pH (5.0-6.5) Ur Specific Cory (1.010-1.025) Urine Protein (NEGATIVE) mg/dL Urine Glucose (UA) (NORMAL) mg/dL Urine Ketones (NEGATIVE) mg/dL Urine Occult Blood (NEGATIVE) Urine Nitrite (NEGATIVE) Urine Bilirubin (NEGATIVE) Urine Urobilinogen (NEGATIVE) mg/dL Ur Leukocyte Esterase (NEGATIVE) Urine RBC (0-5) Urine WBC (0-5) Ur Squamous Epith Cells (NS,R,O) Urine Bacteria (NS) Ethyl Alcohol (<0.03) % SARS-CoV-2 RNA (ANDREW) Negative (NEGATIVE) 09/26/20 Range/Units 06:20 WBC (3.2-10.1) x10-3/uL RBC (3.90-5.90) x10(6)uL Hgb (12.9-17.7) g/dL Hct (38.3-50.1) % MCV (80.8-98.7) fL MCH (27.0-33.3) pg MCHC (28.7-35.3) g/dL RDW (12.4-15.0) % Plt Count (117-477) x10(3)uL MPV (6.7-11.0) fL Neut % (Auto) (40.3-71.8) % Lymph % (Auto) (15.8-45.3) % Vernon % (Auto) (5.5-15.2) % Eos % (Auto) (0.1-6.8) % Baso % (Auto) (0.3-3.8) % Neut # (Auto) (1.7-6.9) x10-3/uL Lymph # (Auto) (0.5-4.5) x10-3/uL Vernon # (Auto) (0.0-1.2) x10-3/uL Eos # (Auto) (0.0-0.6) x10-3/uL Baso # (Auto) (0.0-0.3) x10-3/uL Sodium (135-145) mmol/L Potassium (3.5-5.3) mmol/L Chloride (100-110) mmol/L Carbon Dioxide (21-32) mmol/L BUN (7-18) mg/dL Creatinine (0.70-1.30) mg/dL Est Cr Clr Drug Dosing Estimated GFR (MDRD) (>60) BUN/Creatinine Ratio (9-20) Glucose (80-116) mg/dL Calcium (8.6-10.2) mg/dL Magnesium (1.8-2.5) mg/dL Total Bilirubin (0.1-1.3) mg/dL AST (5-25) IU/L ALT (12-36) U/L Alkaline Phosphatase (56-112) IU/L Total Protein (6.0-8.0) g/dL Albumin (3.5-5.2) g/dL Globulin g/dL Albumin/Globulin Ratio Triglycerides (15-150) mg/dL Cholesterol (50-200) mg/dL LDL Cholesterol Direct (60-130) mg/dL HDL Cholesterol (40-75) mg/dL Cholesterol/HDL Ratio (0-5) Lipase 407 H (73-393) U/L Urine Color (YELLOW) Urine Appearance (CLEAR) Urine pH (5.0-6.5) Ur Specific Cory (1.010-1.025) Urine Protein (NEGATIVE) mg/dL Urine Glucose (UA) (NORMAL) mg/dL Urine Ketones (NEGATIVE) mg/dL Urine Occult Blood (NEGATIVE) Urine Nitrite (NEGATIVE) Urine Bilirubin (NEGATIVE) Urine Urobilinogen (NEGATIVE) mg/dL Ur Leukocyte Esterase (NEGATIVE) Urine RBC (0-5) Urine WBC (0-5) Ur Squamous Epith Cells (NS,R,O) Urine Bacteria (NS) Ethyl Alcohol (<0.03) % SARS-CoV-2 RNA (ANDREW) (NEGATIVE) Result Diagrams: 09/26/20 06:20 09/26/20 06:20 Imaging Impressions Last 24 hrs: CT Abd/Pelvis w/ IV contrast: Impression: 1. No acute findings in the abdomen or pelvis. 2. Diverticulosis. 3. Several pulmonary nodules measuring up to 5 millimeters are also stable from 2018. 4. Enlarged prostate gland. Dictated by Maria De Jesus Stone MD @ Sep 25 2020 8:25PM. Sepsis Event Note - Evaluation Sepsis Screening Result: No Definite Risk - Focused Exam Vital Signs: Vital Signs Temp Pulse Resp BP BP Pulse Ox 09/26/20 12:00 98.4 F 52 L 16 140/79 97 09/26/20 09:27 151/97 H 09/26/20 08:00 97.7 F 56 L 16 154/73 H 96 *Q Meaningful Use (ADM) - VTE Risk Assess *Q Each Risk Factor Represents 1 Point: Age 41 - 59 years Total Score 1 Point Risk Factors: 1 Each Risk Factor Represents 2 Points: None Total Score 2 Point Risk Factors: 0 Each Risk Factor Represents 3 Points: None Total Score 3 Point Risk Factors: 0 Each Risk Factor Represents 5 Points: None Total Score 5 Point Risk Factors: 0 Venous Thromboembolism Risk Factor Score *Q: 1 - Problem List (1) Pancreatitis, acute SNOMED Code(s): 010963483 ICD Code: K85.90 - ACUTE PANCREATITIS WITHOUT NECROSIS OR INFECTION, UNSP Status: Acute Current Visit: Yes Qualifiers: Pancreatitis type: unspecified pancreatitis type Acute pancreatitis complication: no infection or necrosis Qualified Code(s): K85.90 - Acute pancreatitis without necrosis or infection, unspecified (2) HTN (hypertension) SNOMED Code(s): 54095078 ICD Code: I10 - ESSENTIAL (PRIMARY) HYPERTENSION Status: Chronic Current Visit: No (3) Hyperlipidemia SNOMED Code(s): 97569227 ICD Code: E78.5 - HYPERLIPIDEMIA, UNSPECIFIED Status: Chronic Current Visit: Yes Problem List Initiated/Reviewed/Updated: Yes Orders Last 24hrs: Active Orders 24 hr Category Date Time Status Admission Status [Patient Status] [ADT] Routine ADT 09/25/20 20:40 Active Ambulate [RC] ASDIRECTED Care 09/25/20 20:48 Active Ambulate [RC] PER UNIT ROUTINE Care 09/25/20 20:49 Active Antiembolic Devices [RC] .Routine Care 09/25/20 20:48 Active Blood Glucose Check, Bedside [RC] QIDACANDBED Care 09/25/20 20:48 Active Height and Weight [RC] DAILY Care 09/25/20 20:48 Active Intake and Output [RC] 06,14,22 Care 09/25/20 20:49 Active Notify Provider Vital Signs [RC] ASDIRECTED Care 09/25/20 20:49 Active Oxygen Therapy [RC] PRN Care 09/25/20 20:48 Active Pulse Oximetry [RC] PRN Care 09/25/20 20:49 Active VTE/DVT Education [RC] Per Unit Routine Care 09/25/20 20:48 Active Vital Signs [RC] QSHIFT Care 09/25/20 20:48 Active NPO Now [Nothing per Oral Now Diet] [DIET] Diet 09/26/20 Lunch Active Abdomen Pelvis w Cont [CT] Stat Exams 09/25/20 19:35 Taken COMPREHENSIVE METABOLIC PN,CMP [CHEM] Routine Lab 09/27/20 06:00 Ordered LIPASE [CHEM] Routine Lab 09/27/20 06:00 Ordered Acetaminophen [Ofirmev 1000 mg/100 ml] 1,000 mg Med 09/26/20 10:15 Active Premix Bag 1 bag IV Q6H Dextrose 50% in Water Med 09/25/20 20:55 Active 50 ml IVPUSH ASDIRECTED PRN Glucagon,Human Recombinant [GlucaGen] Med 09/25/20 20:55 Active 1 mg IM ASDIRECTED PRN HYDROmorphone [Dilaudid] Med 09/25/20 20:48 Active 1 mg IVPUSH Q4H PRN Insulin Lispro [HumaLOG] Med 09/25/20 20:57 Active See Protocol SUBCUT TIDMEALS Ketorolac [Toradol] Med 09/26/20 10:15 Active 30 mg IVPUSH Q6H Ondansetron [Zofran] Med 09/25/20 20:48 Active 4 mg IV Q6H PRN Pantoprazole [ProTONIX IV] Med 09/26/20 09:00 Active 40 mg IVPUSH Q12H Rosuvastatin [Crestor] Med 09/26/20 09:00 Active 10 mg PO DAILY Sodium Chloride 0.9% [Normal Saline] 1,000 ml Med 09/25/20 21:00 Active IV ASDIRECTED Sodium Chloride 0.9% [Saline Flush] Med 09/25/20 18:27 Active 10 ml FLUSH ASDIRECTED PRN lisinopriL [Prinivil] Med 09/26/20 09:00 Active 10 mg PO DAILY Antiembolic Hose [OM.PC] Per Unit Routine Oth 09/25/20 20:50 Ordered Saline Lock Insert [OM.PC] Routine Oth 09/25/20 18:27 Ordered Resuscitation Status Routine Resus Stat 09/25/20 20:48 Ordered Medication Orders Dextrose/Water (Dextrose 50% In Water) 50 ml IVPUSH ASDIRECTED PRN PRN Reason: Hypoglycemia Glucagon (Glucagen) 1 mg IM ASDIRECTED PRN PRN Reason: Hypoglycemia Hydromorphone HCl (Dilaudid) 1 mg IVPUSH Q4H PRN PRN Reason: Pain (severe 7-10) Last Admin: 09/26/20 14:04 Dose: 1 mg Documented by: Admin: 09/26/20 09:26 Dose: 1 mg Documented by: Admin: 09/26/20 04:57 Dose: 1 mg Documented by: Admin: 09/26/20 00:59 Dose: 1 mg Documented by: RADHA Sodium Chloride (Normal Saline) 1,000 mls @ 250 mls/hr IV ASDIRECTED HEIKE Last Admin: 09/26/20 14:04 Dose: 250 mls/hr Documented by: Infusion: 09/26/20 13:22 Dose: 250 mls/hr Documented by: Admin: 09/26/20 09:22 Dose: 250 mls/hr Documented by: Infusion: 09/26/20 09:03 Dose: 250 mls/hr Documented by: Admin: 09/26/20 05:03 Dose: 250 mls/hr Documented by: Infusion: 09/26/20 04:54 Dose: 250 mls/hr Documented by: Admin: 09/26/20 00:54 Dose: 250 mls/hr Documented by: Infusion: 09/26/20 00:54 Dose: 250 mls/hr Documented by: Admin: 09/25/20 21:07 Dose: 250 mls/hr Documented by: YISSEL Acetaminophen 1,000 mg/ Premix 100 mls @ 400 mls/hr IV Q6H [facility] Stop: 09/27/20 04:29 Last Admin: 09/26/20 10:57 Dose: 400 mls/hr Documented by: BRIAN Insulin Human Lispro (Humalog) 0 unit SUBCUT TIDMEALS [facility]; Protocol Last Admin: 09/26/20 11:23 Dose: 1 units Documented by: JIM Cosigned by: BRIAN Admin: 09/26/20 07:27 Dose: Not Given Documented by: Admin: 09/25/20 22:35 Dose: Not Given Documented by: MARYLIN Ketorolac Tromethamine (Toradol) 30 mg IVPUSH Q6H [facility] Stop: 10/01/20 10:12 Last Admin: 09/26/20 10:56 Dose: 30 mg Documented by: BRIAN Lisinopril (Prinivil) 10 mg PO DAILY [facility] Last Admin: 09/26/20 09:27 Dose: 10 mg Documented by: MARCIO Ondansetron HCl (Zofran) 4 mg IV Q6H PRN PRN Reason: Nausea/Vomiting Last Admin: 09/26/20 14:03 Dose: 4 mg Documented by: Admin: 09/26/20 08:19 Dose: 4 mg Documented by: BRIAN Pantoprazole Sodium (Protonix Iv) 40 mg IVPUSH Q12H [facility] Last Admin: 09/26/20 09:26 Dose: 40 mg Documented by: MARCIO Rosuvastatin Calcium (Crestor) 10 mg PO DAILY [facility] Last Admin: 09/26/20 09:35 Dose: 10 mg Documented by: MARCIO Sodium Chloride (Saline Flush) 10 ml FLUSH ASDIRECTED PRN PRN Reason: Keep Vein Open Last Admin: 09/26/20 14:05 Dose: 10 ml Documented by: Admin: 09/25/20 18:49 Dose: 10 ml Documented by: JYOTI Assessment/Plan Comment:: 1. Admit for observation for acute pancreatitis. 2. Pancreatitis: WBC came down this morning 8.0 with IVF at 250 ml/hr, Lipase 407. Diet advanced to clears this morning, had worsening nausea so decreased back to NPO status. Zofran & Phenergan as needed nausea. Tylenol IV q6h, Toradol 30 mg IV q6h, Dilaudid 1 mg IV q4h as needed severe pain. Will try to advance in morning. Repeat CMP & lipase. 3. HTN: hold Lisinopril until diet advanced. 4. Hyperlipidemia: Hold Crestor until diet advanced. 5. NPO. 6. Activity: as tolerated. 7. CODE STATUS: FULL CODE. If not able to advanced diet will need to change patient to inpatient status. - Mortality Measure Prognosis:: Good
[2020-09-26] MEDS ORDERED: Promethazine 12.5 MG in Sodium Chloride 0.9% 50 ML IV PRN (17:10)
[2020-09-27] MEDS: Sodium Chloride 0.9% 1,000 ML IV SCH ×2 (03:16→07:36)
[2020-09-27] MEDS: Ketorolac 30 MG/ML SDV IVPUSH SCH ×2 (04:11→10:15)
[2020-09-27] MEDS: Acetaminophen 1,000 MG in Premix Bag 1 BAG IV SCH (04:37)
[2020-09-27] MEDS: Pantoprazole 40 MG Vial IVPUSH SCH (08:55)
[2020-09-27] MEDS: Lisinopril 10 MG Tab PO SCH (11:25)
[2020-09-27] MEDS: Rosuvastatin 10 MG Tab PO SCH (11:26)
[2020-09-27] MEDS: Insulin Lispro 100 Unit/ML 3 ML KwikPen SUBCUT SCH (11:32)
[2020-09-27 13:32] VITALS: BP 154/70; PULSE 66
--- NOTE | 2020-09-27 13:57 | PCM.DCSUM1 ---
Discharge Summary - Hospital Course HPI Initial Comments: Eleazar presented to [facility] [place] ER yesterday with epigastric/LUQ abdominal pain radiating to back x 24 hours, associated with nausea, no vomiting. Denies any hematemesis, black or bloody stools. He has been constipated. Denies h/o kidney stones, dysuria, hematuria or frequency. Denies any shortness of breath, chest pain. No sinus symptoms. Medical History: hypertension & hyperlipidemia. Past surgical history include cholecystectomy. Denies alcohol abuse, last drink was a month ago. He smokes but has not had anything for a few days so declined a nicotine patch. In ER WBC was 10.7, Lipase 918, Covid negative. UA showed glucose, Alcohol was <0.03. CT abdomen/pelvis showed some pulmonary nodules, diverticulosis. Diagnosis: Stroke: No - Discharge Data Discharge Date: 09/27/20 Discharge Disposition: Home, Self-Care 01 Condition: Good - Referral to Home Health Primary Care Physician: Filemon Sosa MD - Discharge Diagnosis/Problem(s) (1) Pancreatitis, acute SNOMED Code(s): 212112543 ICD Code: K85.90 - ACUTE PANCREATITIS WITHOUT NECROSIS OR INFECTION, UNSP Status: Resolved Qualifiers: Pancreatitis type: unspecified pancreatitis type Acute pancreatitis complication: no infection or necrosis Qualified Code(s): K85.90 - Acute pancreatitis without necrosis or infection, unspecified (2) HTN (hypertension) SNOMED Code(s): 86482913 ICD Code: I10 - ESSENTIAL (PRIMARY) HYPERTENSION Status: Chronic (3) Hyperlipidemia SNOMED Code(s): 63325327 ICD Code: E78.5 - HYPERLIPIDEMIA, UNSPECIFIED Status: Chronic - Patient Summary/Data Hospital Course: Eleazar was admitted for observation for pancreatitis. His lipase was elevated at 918, trended down to 408 on 09/26. His diet was advanced morning of 09/26, developed nausea, made NPO for lunch & dinner, had 2 emesis in afternoon/evening. Received Zofran & Phenergan yesterday afternoon, no further emesis overnight. Advance diet to clear for breakfast, tolerated well so had soft diet for lunch. He tolerated this, had BM after breakfast this morning. Ambulating in the halls. No Dilaudid since 1400 on 09/26. Had received 4 doses of Ofirmev & 5 doses of Toradol. Home medications restarted today, tolerated them. His LFTs did bump up today from admission ALT 46 up to 408, AST 27 up to 165, Total protein dropped from 7.4 to 5.8, Albumin dropped from 3.8 to 2.9. Basic chemistry was done on 09/26, this may have been delayed reaction 2/2 his pancreatitis, also could be Tylenol, will have them repeated with Dr Sosa as outpatient. He required only sliding scale Insulin during stay, with resumption of his home diet, discharge on his home dose of NovoLog 70/30. - Patient Instructions Diet: Diabetic Diet Activity: As Tolerated Driving: May Drive Today Showering/Bathing: May Shower Notify Provider of: Fever, Increased Pain, Nausea and/or Vomiting Other/Special Instructions: Follow up with Dr Sosa in 1 week to recheck chemistry and liver functions. - Discharge Plan *PRESCRIPTION DRUG MONITORING PROGRAM REVIEWED*: No *COPY OF PRESCRIPTION DRUG MONITORING REPORT IN PATIENT NATALY: Not Applicable Home Medications: Home Meds Aspirin [Lo-Dose Aspirin EC] 81 mg PO DAILY 12/19/18 [History] Lisinopril 10 mg PO DAILY 12/19/18 [History] Ibuprofen [Motrin] 800 mg PO Q8H PRN #30 tablet 07/09/19 [Rx] Rosuvastatin [Crestor] 10 mg PO DAILY 03/13/20 [History] Insuln Asp Prot/Insulin Aspart [NovoLOG Mix 70-30] 15 unit SQ ACDINNER 09/25/20 [History] Insuln Asp Prot/Insulin Aspart [NovoLOG Mix 70-30] 25 unit SQ ACBREAKFAST 09/25/20 [History] Patient Handouts: Smoking Tobacco Information, Adult, Acute Pancreatitis, [id number], Colonoscopy, Adult, Care After, [id number], Fall Prevention in Hospitals, Adult, Venous Thromboembolism Prevention Forms: ED Department Discharge Referrals: Filemon Sosa MD [Primary Care Provider] - - Discharge Summary/Plan Comment DC Time >30 min.: No - General Info Date of Service: 09/27/20 Subjective Update: Eleazar feels much better this morning, states no abdominal pain. Vomited yesterday afternoon and evening, had attempted clears yesterday but was npo remainder of the day. Advance diet to clear this morning. No nausea. No emesis this morning or overnight. Back is hurting a little bit from being in bed. No BM at time of exam. Functional Status: Reports: Pain Controlled, Tolerating Diet, Ambulating, Urinating. Denies: New Symptoms - Patient Data Vitals - Most Recent: Last Vital Signs Temp 97.8 F 09/27/20 12:00 Pulse 66 09/27/20 12:00 Resp 18 09/27/20 12:00 BP 154/70 H 09/27/20 12:00 Pulse Ox 99 09/27/20 12:00 Weight - Most Recent: 160 lb I&O - Last 24 hours: Intake & Output 09/26/20 09/27/20 09/27/20 22:59 06:59 14:59 Intake Total 2642 1778 500 Output Total 700 1225 Balance 1942 553 500 Lab Results - Last 24 hrs: Laboratory Results - last 24 hr 09/26/20 09/26/20 09/26/20 Range/Units 11:06 17:05 22:10 Sodium (135-145) mmol/L Potassium (3.5-5.3) mmol/L Chloride (100-110) mmol/L Carbon Dioxide (21-32) mmol/L BUN (7-18) mg/dL Creatinine (0.70-1.30) mg/dL Est Cr Clr Drug Dosing mL/min Estimated GFR (MDRD) (>60) BUN/Creatinine Ratio (9-20) Glucose (80-116) mg/dL POC Glucose 194 H 128 H 134 H (74-100) mg/dL Calcium (8.6-10.2) mg/dL Total Bilirubin (0.1-1.3) mg/dL AST (5-25) IU/L ALT (12-36) U/L Alkaline Phosphatase (56-112) IU/L Total Protein (6.0-8.0) g/dL Albumin (3.5-5.2) g/dL Globulin g/dL Albumin/Globulin Ratio Lipase (73-393) U/L 09/27/20 09/27/20 Range/Units 06:30 06:30 Sodium 140 (135-145) mmol/L Potassium 3.7 (3.5-5.3) mmol/L Chloride 109 (100-110) mmol/L Carbon Dioxide 21 (21-32) mmol/L BUN 12 (7-18) mg/dL Creatinine 0.9 (0.70-1.30) mg/dL Est Cr Clr Drug Dosing 92.89 mL/min Estimated GFR (MDRD) > 60 (>60) BUN/Creatinine Ratio 13.3 (9-20) Glucose 123 H (80-116) mg/dL POC Glucose (74-100) mg/dL Calcium 7.7 L (8.6-10.2) mg/dL Total Bilirubin 0.5 (0.1-1.3) mg/dL AST 165 H* D (5-25) IU/L ALT 408 H* D (12-36) U/L Alkaline Phosphatase 142 H (56-112) IU/L Total Protein 5.8 L (6.0-8.0) g/dL Albumin 2.9 L (3.5-5.2) g/dL Globulin 2.9 g/dL Albumin/Globulin Ratio 1.0 Lipase 232 (73-393) U/L Med Orders - Current: Current Medications Discontinued Medications Aspirin (Halfprin) 81 mg PO DAILY [facility] Dextrose/Water (Dextrose 50% In Water) 50 ml IVPUSH ASDIRECTED PRN PRN Reason: Hypoglycemia Glucagon (Glucagen) 1 mg IM ASDIRECTED PRN PRN Reason: Hypoglycemia Hydromorphone HCl (Dilaudid) 1 mg IVPUSH ONETIME ONE Stop: 09/25/20 20:40 Last Admin: 09/25/20 20:45 Dose: 1 mg Documented by: Hydromorphone HCl (Dilaudid) 1 mg IVPUSH Q4H PRN PRN Reason: Pain (severe 7-10) Last Admin: 09/26/20 14:04 Dose: 1 mg Documented by: Sodium Chloride (Normal Saline) 1,000 mls @ 999 mls/hr IV .BOLUS ONE Stop: 09/25/20 20:37 Last Admin: 09/25/20 20:06 Dose: 999 mls/hr Documented by: Sodium Chloride (Normal Saline) 1,000 mls @ 100 mls/hr IV ASDIRECTED [facility] Last Admin: 09/27/20 07:36 Dose: 250 mls/hr Documented by: Acetaminophen 1,000 mg/ Premix 100 mls @ 400 mls/hr IV Q6H [facility] Stop: 09/27/20 04:29 Last Admin: 09/27/20 04:37 Dose: 400 mls/hr Documented by: Promethazine HCl 12.5 mg/ (Sodium Chloride) 50.5 mls @ 200 mls/hr IV Q6H PRN PRN Reason: NAUSEA/VOMITING Last Admin: 09/26/20 17:30 Dose: 200 mls/hr Documented by: Insulin Human Lispro (Humalog) 0 unit SUBCUT TIDMEALS [facility]; Protocol Last Admin: 09/27/20 11:32 Dose: 1 units Documented by: Iopamidol (Isovue-370 (76%)) 100 ml IV ONETIME ONE Stop: 09/25/20 19:42 Last Admin: 09/25/20 19:48 Dose: 100 ml Documented by: Ketorolac Tromethamine (Toradol) 30 mg IVPUSH Q6H [facility] Stop: 10/01/20 10:12 Last Admin: 09/27/20 10:15 Dose: 30 mg Documented by: Lisinopril (Prinivil) 10 mg PO DAILY [facility] Last Admin: 09/27/20 11:25 Dose: 10 mg Documented by: Ondansetron HCl (Zofran) 4 mg IVPUSH ONETIME ONE Stop: 09/25/20 18:34 Last Admin: 09/25/20 18:49 Dose: 4 mg Documented by: Ondansetron HCl (Zofran) 4 mg IV Q6H PRN PRN Reason: Nausea/Vomiting Last Admin: 09/26/20 14:03 Dose: 4 mg Documented by: Pantoprazole Sodium (Protonix Iv) 40 mg IVPUSH ONETIME ONE Stop: 09/25/20 18:34 Last Admin: 09/25/20 18:48 Dose: 40 mg Documented by: Pantoprazole Sodium (Protonix Iv) 40 mg IVPUSH Q12H [facility] Last Admin: 09/27/20 08:55 Dose: 40 mg Documented by: Rosuvastatin Calcium (Crestor) 10 mg PO DAILY [facility] Last Admin: 09/27/20 11:26 Dose: 10 mg Documented by: Sodium Chloride (Saline Flush) 10 ml FLUSH ASDIRECTED PRN PRN Reason: Keep Vein Open Last Admin: 09/26/20 14:05 Dose: 10 ml Documented by: - Exam General: Reports: Alert, Oriented, Cooperative Lungs: Reports: Clear to Auscultation, Normal Respiratory Effort Cardiovascular: Reports: Regular Rate, Regular Rhythm GI/Abdominal Exam: Normal Bowel Sounds, Soft, Non-Tender, No Distention Extremities: No Pedal Edema, Normal Capillary Refill
== END 2020-09-27 12:10 | disposition home or self-care (01) ==
LOC: FB.ED 18:19 → FB.MS 20:40
PROVIDERS: ADMIT Emergency Medicine; ATTEND Family Medicine
DX: K85.90 Acute pancreatitis without necrosis or infection, unspecified (principal); E11.9 Type 2 diabetes mellitus without complications; I10 Essential (primary) hypertension; E78.00 Pure hypercholesterolemia, unspecified; F17.210 Nicotine dependence, cigarettes, uncomplicated; Z88.8 Allergy status to other drugs, medicaments and biological substances; Z79.82 Long term (current) use of aspirin; Z79.4 Long term (current) use of insulin; Z90.49 Acquired absence of other specified parts of digestive tract; Z20.822 Contact with and (suspected) exposure to COVID-19
CPT/HCPCS: 36415; 74177; 80048; 80053; 80061; 80307; 81001; 82962; 83690; 83735; 85025; 87635; 96365; 96375; 96376; 99285; A9270; C9113; G0378; J0131; J1170; J1815; J1885; J2405; J2550; J7030; Q9967; 96374; 99284; U0002

== ENCOUNTER 2021-02-01 18:01 | Observation (INO) | payer MEDICAID ==
[2021-02-01] MEDS ORDERED: Sodium Chloride 0.9% 1,000 ML IV ONE (18:55)
[2021-02-01] MEDS ORDERED: Sodium Chloride 0.9% 10 ML Syringe FLUSH PRN (18:55)
[2021-02-01] MEDS ORDERED: Ondansetron 4 MG/2 ML SDV IVPUSH ONE (18:56)
[2021-02-01] MEDS ORDERED: Pantoprazole 40 MG Vial IVPUSH ONE (18:56)
--- NOTE | 2021-02-01 19:01 | EDM.PDOC ---
ED HPI GENERAL MEDICAL PROBLEM - General Chief Complaint: Abdominal Pain Stated Complaint: ABDOMINAL PAIN Time Seen by Provider: 02/01/21 18:56 Source of Information: Reports: Patient History Limitations: Reports: No Limitations - History of Present Illness INITIAL COMMENTS - FREE TEXT/NARRATIVE: Developed N/V two days ago without abdominal pain, resolved. Was asymptomatic yesterday, then today developed epigastric pain, heart burn, and vomiting with PO intake. No improvement with Rolaids and Alkaselzer. Drinks alcohol occasionally. Took Ibuprofen yesterday, does not take regularly. PMHx includes CAD, Pancreatitis (Sep 2020), and PUD. Location: Reports: Abdomen Epigastric Pain Score (Numeric/FACES): 6 - Related Data Allergies Allergy/AdvReac Type Severity Reaction Status Date / Time tramadol Allergy Rash Verified 09/25/20 19:24 Home Meds: Home Meds Aspirin [Lo-Dose Aspirin EC] 81 mg PO DAILY 12/19/18 [History] Lisinopril 10 mg PO DAILY 12/19/18 [History] Ibuprofen [Motrin] 800 mg PO Q8H PRN #30 tablet 07/09/19 [Rx] Rosuvastatin [Crestor] 10 mg PO DAILY 03/13/20 [History] Insuln Asp Prot/Insulin Aspart [NovoLOG Mix 70-30] 15 unit SQ ACDINNER 09/25/20 [History] Insuln Asp Prot/Insulin Aspart [NovoLOG Mix 70-30] 25 unit SQ ACBREAKFAST 09/25/20 [History] Past Medical History HEENT History: Reports: Other (See Below) Other HEENT History: poor dentition Cardiovascular History: Reports: CAD, High Cholesterol, Hypertension Respiratory History: Reports: Other (See Below) Other Respiratory History: chronic smoker. Gastrointestinal History: Reports: Pancreatitis, PUD Musculoskeletal History: Reports: Back Pain, Chronic Endocrine/Metabolic History: Reports: Diabetes, Type II - Past Surgical History GI Surgical History: Reports: Cholecystectomy, Hernia, Inguinal Musculoskeletal Surgical History: Reports: Other (See Below) Other Musculoskeletal Surgeries/Procedures:: BACK INJECTION Social & Family History - Family History Family Medical History: No Pertinent Family History - Tobacco Use Tobacco Use Status *Q: Current Every Day Tobacco User Years of Tobacco use: 30 Packs/Tins Daily: 5 - Caffeine Use Caffeine Use: Reports: Coffee, Soda - Alcohol Use Alcohol Use History: Yes Alcohol Use Frequency: Socially - Recreational Drug Use Recreational Drug Use: No ED ROS GENERAL - Review of Systems Review Of Systems: Comprehensive ROS is negative, except as noted in HPI. ED EXAM, GI/ABD - Physical Exam Exam: See Below Exam Limited By: No Limitations General Appearance: Alert, WD/WN, No Apparent Distress Throat/Mouth: Normal Voice, No Airway Compromise Head: Atraumatic, Normocephalic Neck: Full Range of Motion Respiratory/Chest: No Respiratory Distress, Lungs Clear, Normal Breath Sounds Cardiovascular: Regular Rate, Rhythm, No Murmur GI/Abdominal Exam: Normal Bowel Sounds, Soft, Non-Tender, No Distention Back Exam: Full Range of Motion Extremities: Normal Range of Motion Neurological: Alert, Oriented, Normal Cognition Psychiatric: Normal Affect, Normal Mood Skin Exam: Warm, Dry, Intact Course - Vital Signs Last Recorded V/S: Last Vital Signs Temp 36.7 C 02/01/21 18:01 Pulse 83 02/01/21 18:01 Resp 20 02/01/21 18:01 BP 117/81 02/01/21 18:01 Pulse Ox 97 02/01/21 18:01 - Orders/Labs/Meds Orders: Active Orders 24 hr Category Date Time Status EKG Documentation Completion [RC] ASDIRECTED Care 02/01/21 18:55 Ordered CBC WITH AUTO DIFF [HEME] Stat Lab 02/01/21 18:54 Ordered COMPREHENSIVE METABOLIC PN,CMP [CHEM] Stat Lab 02/01/21 18:54 Ordered LIPASE [CHEM] Stat Lab 02/01/21 18:54 Ordered TROPONIN I [CHEM] Stat Lab 02/01/21 18:54 Ordered Ondansetron [Zofran] Med 02/01/21 18:56 Once 4 mg IVPUSH ONETIME ONE Pantoprazole [ProTONIX IV] Med 02/01/21 18:56 Once 40 mg IVPUSH ONETIME ONE Sodium Chloride 0.9% [Normal Saline] 1,000 ml Med 02/01/21 18:55 Ordered IV .BOLUS Sodium Chloride 0.9% [Saline Flush] Med 02/01/21 18:55 Ordered 10 ml FLUSH ASDIRECTED PRN Saline Lock Insert [OM.PC] Routine Oth 02/01/21 18:55 Ordered EKG 12 Lead [EK] Stat Ther 02/01/21 18:55 Ordered Medication Orders Sodium Chloride (Normal Saline) 1,000 mls @ 999 mls/hr IV .BOLUS ONE Stop: 02/01/21 19:55 Ondansetron HCl (Ondansetron 4 Mg/2 Ml Sdv) 4 mg IVPUSH ONETIME ONE Stop: 02/01/21 18:57 Pantoprazole Sodium (Pantoprazole 40 Mg Vial) 40 mg IVPUSH ONETIME ONE Stop: 02/01/21 18:57 Sodium Chloride (Sodium Chloride 0.9% 10 Ml Syringe) 10 ml FLUSH ASDIRECTED PRN PRN Reason: Keep Vein Open Meds: Medications Generic Name Dose Route Start Last Admin Trade Name Freq PRN Reason Stop Dose Admin Sodium Chloride 1,000 mls @ 999 mls/hr 02/01/21 18:55 Normal Saline IV 02/01/21 19:55 .BOLUS ONE Ondansetron HCl 4 mg 02/01/21 18:56 Ondansetron 4 Mg/2 Ml Sdv IVPUSH 02/01/21 18:57 ONETIME ONE Pantoprazole Sodium 40 mg 02/01/21 18:56 Pantoprazole 40 Mg Vial IVPUSH 02/01/21 18:57 ONETIME ONE Sodium Chloride 10 ml 02/01/21 18:55 Sodium Chloride 0.9% 10 Ml Syringe FLUSH ASDIRECTED PRN Keep Vein Open - Re-Assessments/Exams Free Text/Narrative Re-Assessment/Exam: 02/01/21 19:00 Patient care transferred to Dr. Santizo. Departure - Departure Time of Disposition: 19:01 Disposition: Still A Patient 30 Clinical Impression: Abdominal pain Qualifiers: Abdominal location: epigastric Qualified Code(s): R10.13 - Epigastric pain - Discharge Information Referrals: Filemon Sosa MD [Primary Care Provider] - Sepsis Event Note (ED) - Evaluation Sepsis Screening Result: No Definite Risk - Focused Exam Vital Signs: Vital Signs Temp Pulse Resp BP Pulse Ox 02/01/21 18:01 36.7 C 83 20 117/81 97 - My Orders Last 24 Hours: My Active Orders 02/01/21 18:54 CBC WITH AUTO DIFF [HEME] Stat COMPREHENSIVE METABOLIC PN,CMP [CHEM] Stat LIPASE [CHEM] Stat TROPONIN I [CHEM] Stat 02/01/21 18:55 EKG Documentation Completion [RC] ASDIRECTED Sodium Chloride 0.9% [Normal Saline] 1,000 ml IV .BOLUS Sodium Chloride 0.9% [Saline Flush] 10 ml FLUSH ASDIRECTED PRN Saline Lock Insert [OM.PC] Routine EKG 12 Lead [EK] Stat 02/01/21 18:56 Ondansetron [Zofran] 4 mg IVPUSH ONETIME ONE Pantoprazole [ProTONIX IV] 40 mg IVPUSH ONETIME ONE - Assessment/Plan Last 24 Hours: My Active Orders 02/01/21 18:54 CBC WITH AUTO DIFF [HEME] Stat COMPREHENSIVE METABOLIC PN,CMP [CHEM] Stat LIPASE [CHEM] Stat TROPONIN I [CHEM] Stat 02/01/21 18:55 EKG Documentation Completion [RC] ASDIRECTED Sodium Chloride 0.9% [Normal Saline] 1,000 ml IV .BOLUS Sodium Chloride 0.9% [Saline Flush] 10 ml FLUSH ASDIRECTED PRN Saline Lock Insert [OM.PC] Routine EKG 12 Lead [EK] Stat 02/01/21 18:56 Ondansetron [Zofran] 4 mg IVPUSH ONETIME ONE Pantoprazole [ProTONIX IV] 40 mg IVPUSH ONETIME ONE
--- NOTE | 2021-02-01 19:17 | EDM.PDOC ---
ED HPI GENERAL MEDICAL PROBLEM - General Chief Complaint: Abdominal Pain Stated Complaint: ABDOMINAL PAIN Time Seen by Provider: 02/01/21 18:56 Source of Information: Reports: Patient History Limitations: Reports: No Limitations - History of Present Illness INITIAL COMMENTS - FREE TEXT/NARRATIVE: Developed N/V two days ago without abdominal pain, resolved. Was asymptomatic yesterday, then today developed epigastric pain, heart burn, and vomiting with PO intake. No improvement with Rolaids and Alkaselzer. Drinks alcohol occasionally. Took Ibuprofen yesterday, does not take regularly. PMHx includes CAD, Pancreatitis (Sep 2020), and PUD. Location: Reports: Abdomen Epigastric Pain Score (Numeric/FACES): 6 - Related Data Allergies Allergy/AdvReac Type Severity Reaction Status Date / Time tramadol Allergy Rash Verified 09/25/20 19:24 Home Meds: Home Meds Aspirin [Lo-Dose Aspirin EC] 81 mg PO DAILY 12/19/18 [History] Lisinopril 10 mg PO DAILY 12/19/18 [History] Ibuprofen [Motrin] 800 mg PO Q8H PRN #30 tablet 07/09/19 [Rx] Rosuvastatin [Crestor] 10 mg PO DAILY 03/13/20 [History] Insuln Asp Prot/Insulin Aspart [NovoLOG Mix 70-30] 15 unit SQ ACDINNER 09/25/20 [History] Insuln Asp Prot/Insulin Aspart [NovoLOG Mix 70-30] 25 unit SQ ACBREAKFAST 09/25/20 [History] Past Medical History HEENT History: Reports: Other (See Below) Other HEENT History: poor dentition Cardiovascular History: Reports: CAD, High Cholesterol, Hypertension Respiratory History: Reports: Other (See Below) Other Respiratory History: chronic smoker. Gastrointestinal History: Reports: Pancreatitis, PUD Musculoskeletal History: Reports: Back Pain, Chronic Endocrine/Metabolic History: Reports: Diabetes, Type II - Past Surgical History GI Surgical History: Reports: Cholecystectomy, Hernia, Inguinal Musculoskeletal Surgical History: Reports: Other (See Below) Other Musculoskeletal Surgeries/Procedures:: BACK INJECTION Social & Family History - Family History Family Medical History: No Pertinent Family History - Tobacco Use Tobacco Use Status *Q: Current Every Day Tobacco User Years of Tobacco use: 30 Packs/Tins Daily: 5 - Caffeine Use Caffeine Use: Reports: Coffee, Soda - Recreational Drug Use Recreational Drug Use: No ED ROS GENERAL - Review of Systems Review Of Systems: Comprehensive ROS is negative, except as noted in HPI. ED EXAM, GI/ABD - Physical Exam Exam: See Below Exam Limited By: No Limitations General Appearance: Alert, WD/WN, No Apparent Distress Throat/Mouth: Normal Inspection Head: Atraumatic Neck: Normal Inspection Respiratory/Chest: No Respiratory Distress GI/Abdominal Exam: Normal Bowel Sounds, Soft Neurological: Alert, Oriented #1 Interpretation EKG Date: 02/01/21 Rhythm: NSR Freeman: Normal P-Wave: Present QRS: Normal Comparison: NA - No Prior EKG #2 Interpretation EKG Date: 02/01/21 Time: 21:53 Rhythm: NSR Rate (Beats/Min): 58 Freeman: Normal Course - Vital Signs Last Recorded V/S: Last Vital Signs Temp 98.1 F 02/01/21 18:01 Pulse 83 02/01/21 18:01 Resp 20 02/01/21 18:01 BP 117/81 02/01/21 18:01 Pulse Ox 97 02/01/21 18:01 - Orders/Labs/Meds Orders: Active Orders 24 hr Category Date Time Status EKG Documentation Completion [RC] ASDIRECTED Care 02/01/21 18:55 Active EKG Documentation Completion [RC] ASDIRECTED Care 02/01/21 20:06 Active Abdomen Pelvis w Cont [CT] Stat Exams 02/01/21 19:15 Taken Sodium Chloride 0.9% [Saline Flush] Med 02/01/21 18:55 Active 10 ml FLUSH ASDIRECTED PRN Saline Lock Insert [OM.PC] Routine Oth 02/01/21 18:55 Ordered EKG 12 Lead [EK] Routine Ther 02/01/21 22:00 Ordered EKG 12 Lead [EK] Stat Ther 02/01/21 18:55 Ordered Medication Orders Sodium Chloride (Sodium Chloride 0.9% 10 Ml Syringe) 10 ml FLUSH ASDIRECTED PRN PRN Reason: Keep Vein Open Labs: Laboratory Tests 02/01/21 02/01/21 02/01/21 Range/Units 19:05 19:05 19:05 WBC 11.6 H (3.2-10.1) x10-3/uL RBC 4.94 (3.90-5.90) x10(6)uL Hgb 15.0 (12.9-17.7) g/dL Hct 45.4 (38.3-50.1) % MCV 91.9 (80.8-98.7) fL MCH 30.4 (27.0-33.3) pg MCHC 33.1 (28.7-35.3) g/dL RDW 12.8 (12.4-15.0) % Plt Count 278 (117-477) x10(3)uL MPV 8.0 (6.7-11.0) fL Neut % (Auto) 71.1 (40.3-71.8) % Lymph % (Auto) 19.4 (15.8-45.3) % [place] % (Auto) 8.4 (5.5-15.2) % Eos % (Auto) 0.5 (0.1-6.8) % Baso % (Auto) 0.6 (0.3-3.8) % Neut # (Auto) 8.3 H (1.7-6.9) x10-3/uL Lymph # (Auto) 2.3 (0.5-4.5) x10-3/uL [place] # (Auto) 1.0 (0.0-1.2) x10-3/uL Eos # (Auto) 0.1 (0.0-0.6) x10-3/uL Baso # (Auto) 0.1 (0.0-0.3) x10-3/uL Sodium 143 (135-145) mmol/L Potassium 4.0 (3.5-5.3) mmol/L Chloride 104 D (100-110) mmol/L Carbon Dioxide 25 (21-32) mmol/L BUN 22 H D (7-18) mg/dL Creatinine 1.0 (0.70-1.30) mg/dL Est Cr Clr Drug Dosing 86.41 mL/min Estimated GFR (MDRD) > 60 (>60) BUN/Creatinine Ratio 22.0 H (9-20) Glucose 92 (80-116) mg/dL Calcium 8.5 L (8.6-10.2) mg/dL Total Bilirubin 0.3 (0.1-1.3) mg/dL AST 30 H D (5-25) IU/L ALT 32 D (12-36) U/L Alkaline Phosphatase 91 (56-112) IU/L Troponin I 582.1 H* (4.0-60.3) pg/mL Total Protein 7.5 (6.0-8.0) g/dL Albumin 3.8 (3.5-5.2) g/dL Globulin 3.7 g/dL Albumin/Globulin Ratio 1.0 Lipase 61 L (73-393) U/L 06/30/ Range/Units 22:05 WBC (3.2-10.1) x10-3/uL RBC (3.90-5.90) x10(6)uL Hgb (12.9-17.7) g/dL Hct (38.3-50.1) % MCV (80.8-98.7) fL MCH (27.0-33.3) pg MCHC (28.7-35.3) g/dL RDW (12.4-15.0) % Plt Count (117-477) x10(3)uL MPV (6.7-11.0) fL Neut % (Auto) (40.3-71.8) % Lymph % (Auto) (15.8-45.3) % [place] % (Auto) (5.5-15.2) % Eos % (Auto) (0.1-6.8) % Baso % (Auto) (0.3-3.8) % Neut # (Auto) (1.7-6.9) x10-3/uL Lymph # (Auto) (0.5-4.5) x10-3/uL [place] # (Auto) (0.0-1.2) x10-3/uL Eos # (Auto) (0.0-0.6) x10-3/uL Baso # (Auto) (0.0-0.3) x10-3/uL Sodium (135-145) mmol/L Potassium (3.5-5.3) mmol/L Chloride (100-110) mmol/L Carbon Dioxide (21-32) mmol/L BUN (7-18) mg/dL Creatinine (0.70-1.30) mg/dL Est Cr Clr Drug Dosing mL/min Estimated GFR (MDRD) (>60) BUN/Creatinine Ratio (9-20) Glucose (80-116) mg/dL Calcium (8.6-10.2) mg/dL Total Bilirubin (0.1-1.3) mg/dL AST (5-25) IU/L ALT (12-36) U/L Alkaline Phosphatase (56-112) IU/L Troponin I 527.0 H* (4.0-60.3) pg/mL Total Protein (6.0-8.0) g/dL Albumin (3.5-5.2) g/dL Globulin g/dL Albumin/Globulin Ratio Lipase (73-393) U/L Meds: Medications Generic Name Dose Route Start Last Admin Trade Name Freq PRN Reason Stop Dose Admin Sodium Chloride 10 ml 02/01/21 18:55 Sodium Chloride 0.9% 10 Ml Syringe FLUSH ASDIRECTED PRN Keep Vein Open Discontinued Medications Generic Name Dose Route Start Last Admin Trade Name Freq PRN Reason Stop Dose Admin Sodium Chloride 1,000 mls @ 999 mls/hr 02/01/21 18:55 02/01/21 19:17 Normal Saline IV 02/01/21 19:55 999 mls/hr .BOLUS ONE Administration Iopamidol 75 ml 02/01/21 19:23 02/01/21 19:30 Iopamidol 755 Mg/Ml 75 Ml Bottle IV 02/01/21 19:24 75 ml ONETIME ONE Administration Ondansetron HCl 4 mg 02/01/21 18:56 02/01/21 19:17 Ondansetron 4 Mg/2 Ml Sdv IVPUSH 02/01/21 18:57 4 mg ONETIME ONE Administration Pantoprazole Sodium 40 mg 02/01/21 18:56 02/01/21 19:17 Pantoprazole 40 Mg Vial IVPUSH 02/01/21 18:57 40 mg ONETIME ONE Administration Departure - Departure Time of Disposition: 22:41 Disposition: Refer to Observation Clinical Impression: Abdominal pain Qualifiers: Abdominal location: epigastric Qualified Code(s): R10.13 - Epigastric pain - Discharge Information Referrals: Filemon Sosa MD [Primary Care Provider] - Forms: ED Department Discharge Sepsis Event Note (ED) - Evaluation Sepsis Screening Result: No Definite Risk - Focused Exam Vital Signs: Vital Signs Temp Pulse Resp BP Pulse Ox 02/01/21 18:01 98.1 F 83 20 117/81 97 - Problem List & Annotations (1) Epigastric pain SNOMED Code(s): 70378850 Code(s): R10.13 - EPIGASTRIC PAIN Status: Acute Current Visit: Yes (2) Elevated troponin SNOMED Code(s): 825936725, 894966446, 609409602 Code(s): R77.8 - OTHER SPECIFIED ABNORMALITIES OF PLASMA PROTEINS Status: Acute Current Visit: Yes - Problem List Review Problem List Initiated/Reviewed/Updated: Yes - My Orders Last 24 Hours: My Active Orders 02/01/21 19:15 Abdomen Pelvis w Cont [CT] Stat 02/01/21 20:06 EKG Documentation Completion [RC] ASDIRECTED 02/01/21 22:00 EKG 12 Lead [EK] Routine - Assessment/Plan Last 24 Hours: My Active Orders 02/01/21 19:15 Abdomen Pelvis w Cont [CT] Stat 02/01/21 20:06 EKG Documentation Completion [RC] ASDIRECTED 02/01/21 22:00 EKG 12 Lead [EK] Routine Plan: EKG is normal. He has no cardiopulmonary symptoms but his Trop is high. A repeat Trop was less,and EKG normal.Will admit for observation
[2021-02-01] MEDS ORDERED: Iopamidol 755 Mg/ML 75 ML Bottle IV ONE (19:23)
[2021-02-01] MEDS ORDERED: Ondansetron 4 MG/2 ML SDV IV PRN (22:42)
[2021-02-01] MEDS ORDERED: Sodium Chloride 0.9% 1,000 ML IV SCH (22:45)
[2021-02-02] MEDS ORDERED: Rosuvastatin 10 MG Tab PO SCH (10:30)
[2021-02-02] MEDS ORDERED: Lisinopril 10 MG Tab PO SCH (10:30)
[2021-02-02] MEDS ORDERED: Aspirin 81 MG Tab.EC PO SCH (10:30)
[2021-02-02] MEDS ORDERED: Heparin Sodium 5,000 Units/ML Vial IVPUSH ONE (10:41)
[2021-02-02] MEDS ORDERED: Metoprolol Tartrate 25 MG Tab PO ONE (10:43)
[2021-02-02] MEDS ORDERED: Nitroglycerin 0.4 MG Tab.SL SL PRN (10:43)
[2021-02-02] MEDS ORDERED: Aspirin 325 MG Tab.EC PO ONE (10:45)
[2021-02-02] MEDS ORDERED: Heparin Sodium/0.45% NaCl 25,000 UNITS/500 ML BAG IV SCH (10:45)
[2021-02-02] MEDS ORDERED: Glucagon,Human Recombinant 1 MG Vial IM PRN (10:47)
[2021-02-02] MEDS ORDERED: Insulin Lispro 100 Unit/ML 3 ML KwikPen SUBCUT PRN (10:47)
[2021-02-02] MEDS ORDERED: 50% Dextrose in Water 50 ML Syringe IVPUSH PRN (10:47)
--- NOTE | 2021-02-02 11:51 | PCM.DCSUM1 ---
Discharge Summary - Hospital Course HPI Initial Comments: Jhon presented to ER last night with 2 day history of epigastric pain, nausea, vomiting, diaphoresis, chills. Did not respond to antacids. Pain improved overnight, had Zofran & Pantoprazole in ER. Denies any sinus symptoms, shortness of breath, constipation or diarrhea. No dysuria, frequency or hematuria. No rashes, anemia. 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 Family HX of OR in his dad, CAD in father/mother, Diabetes in father/mother. SUsed to smoke 1 ppd but down now to 6 cigarettes/day. ER course: CT abdomen/pelvis: negative for any acute findings. WBC 11.6, 9.1. Cr 1.0, glu 92, 163. LFTs within normal limits. 3 sets of EKG: NSR, no ST-T wave changes. Troponin: 1st: 582, 2nd: 527, 3rd: 322 (normal 16-80). Received 1 dose of Zofran & Pantoprazole, nausea/vomiting resolved. Stated epigastric pain resolved. No cardiac medications given overnight. No home medications resumed. He was admitted for observation. No documentation that cardiology was consulted by ER last night for elevated troponin. Diagnosis: Stroke: No - Discharge Data Discharge Date: 02/02/21 Discharge Disposition: DC/Tfer to Acute Hospital 02 Condition: Serious - Referral to Home Health Primary Care Physician: Filemon Sosa MD - Discharge Diagnosis/Problem(s) (1) NSTEMI (non-ST elevated myocardial infarction) SNOMED Code(s): 27656936 ICD Code: I21.4 - NON-ST ELEVATION (NSTEMI) MYOCARDIAL INFARCTION Status: Acute Current Visit: Yes (2) Elevated troponin SNOMED Code(s): 178984646, 813885047, 456455574 ICD Code: R77.8 - OTHER SPECIFIED ABNORMALITIES OF PLASMA PROTEINS Status: Acute Current Visit: Yes (3) Diabetes SNOMED Code(s): 06549038 ICD Code: E11.9 - TYPE 2 DIABETES MELLITUS WITHOUT COMPLICATIONS Status: Chronic Current Visit: Yes Qualifiers: Diabetes mellitus type: type 2 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 No lovenox or aspirin given in ER. He took his aspirin 81 mg yesterday morning. No other medications given overnight. Normal sinus rhythm on telemetry overnight. Labs in am: WBC 9.1 down from 11.6. Creatinine 1.0 BUN 17, glucose 163, potassium 4.2. lipase 61. CT abdomen/pelvis: no acute findings. Troponin: 582, 567, 322. Spoke with Dr Jeronimo at , accepted patient in transfer for NSTEMI, no history of CHF/CKD to account for elevated high-sensitivity troponin(normal 16-80). PTT 30. Dr Jeronimo advised to start Heparin drip, ASA 325 mg, add Metoprolol 12.5 mg to his home medications of Lisinopril & Crestor which were given this morning. Heparin bolus 4000 units given, drip started. Patient will go by ground ambulance to . - Patient Instructions Diet: NPO Activity: Bedrest Driving: Do Not Drive Showering/Bathing: No Showering Other/Special Instructions: Transfer to for interventional cardiology. - Discharge Plan *PRESCRIPTION DRUG MONITORING PROGRAM REVIEWED*: Not Applicable *COPY OF PRESCRIPTION DRUG MONITORING REPORT IN PATIENT NATALY: Not Applicable Home Medications: Home Meds Aspirin [Lo-Dose Aspirin EC] 81 mg PO DAILY 12/19/18 [History] Lisinopril 10 mg PO DAILY 12/19/18 [History] Rosuvastatin [Crestor] 10 mg PO DAILY 03/13/20 [History] Insuln Asp Prot/Insulin Aspart [NovoLOG Mix 70-30] 15 unit SQ ACDINNER 09/25/20 [History] Insuln Asp Prot/Insulin Aspart [NovoLOG Mix 70-30] 25 unit SQ ACBREAKFAST 09/25/20 [History] Nitroglycerin [Nitrostat] 0.4 mg SL Q5M PRN tab.sl 02/02/21 [Rx] Forms: ED Department Discharge Referrals: Filemon Sosa MD [Primary Care Provider] - - Discharge Summary/Plan Comment DC Time >30 min.: No - General Info Date of Service: 02/02/21 Subjective Update: Jhon is pain free this morning, normal sinus on telemetry. No nausea/vomiting overnight. Ate breakfast today, no recurrence of nausea/vomiting. No chest pain, shortness of breath or epigastric pain. States he will quit smoking on discharge that only smokes 6 cigarettes/day, he hasn't had anything since admission and feels fine. Functional Status: Reports: Pain Controlled. Denies: New Symptoms - Patient Data Vitals - Most Recent: Last Vital Signs Temp 97.2 F 02/02/21 06:00 Pulse 57 L 02/02/21 11:18 Resp 16 02/02/21 06:00 BP 159/40 H 02/02/21 11:18 Pulse Ox 97 02/02/21 06:00 Weight - Most Recent: 157 lb 12.8 oz Lab Results - Last 24 hrs: Laboratory Results - last 24 hr 02/01/21 02/01/21 02/01/21 Range/Units 19:05 19:05 19:05 WBC 11.6 H (3.2-10.1) x10-3/uL RBC 4.94 (3.90-5.90) x10(6)uL Hgb 15.0 (12.9-17.7) g/dL Hct 45.4 (38.3-50.1) % MCV 91.9 (80.8-98.7) fL MCH 30.4 (27.0-33.3) pg MCHC 33.1 (28.7-35.3) g/dL RDW 12.8 (12.4-15.0) % Plt Count 278 (117-477) x10(3)uL MPV 8.0 (6.7-11.0) fL Neut % (Auto) 71.1 (40.3-71.8) % Lymph % (Auto) 19.4 (15.8-45.3) % [place] % (Auto) 8.4 (5.5-15.2) % Eos % (Auto) 0.5 (0.1-6.8) % Baso % (Auto) 0.6 (0.3-3.8) % Neut # (Auto) 8.3 H (1.7-6.9) x10-3/uL Lymph # (Auto) 2.3 (0.5-4.5) x10-3/uL [place] # (Auto) 1.0 (0.0-1.2) x10-3/uL Eos # (Auto) 0.1 (0.0-0.6) x10-3/uL Baso # (Auto) 0.1 (0.0-0.3) x10-3/uL APTT (24.4-33.2) SECONDS Sodium 143 (135-145) mmol/L Potassium 4.0 (3.5-5.3) mmol/L Chloride 104 D (100-110) mmol/L Carbon Dioxide 25 (21-32) mmol/L BUN 22 H D (7-18) mg/dL Creatinine 1.0 (0.70-1.30) mg/dL Est Cr Clr Drug Dosing 86.41 mL/min Estimated GFR (MDRD) > 60 (>60) BUN/Creatinine Ratio 22.0 H (9-20) Glucose 92 (80-116) mg/dL Calcium 8.5 L (8.6-10.2) mg/dL Total Bilirubin 0.3 (0.1-1.3) mg/dL AST 30 H D (5-25) IU/L ALT 32 D (12-36) U/L Alkaline Phosphatase 91 (56-112) IU/L Troponin I 582.1 H* (4.0-60.3) pg/mL Total Protein 7.5 (6.0-8.0) g/dL Albumin 3.8 (3.5-5.2) g/dL Globulin 3.7 g/dL Albumin/Globulin Ratio 1.0 Lipase 61 L (73-393) U/L 02/01/21 02/02/21 02/02/21 Range/Units 22:05 06:25 06:25 WBC 9.1 (3.2-10.1) x10-3/uL RBC 4.86 (3.90-5.90) x10(6)uL Hgb 15.1 (12.9-17.7) g/dL Hct 44.7 (38.3-50.1) % MCV 92.1 (80.8-98.7) fL MCH 31.0 (27.0-33.3) pg MCHC 33.7 (28.7-35.3) g/dL RDW 13.2 (12.4-15.0) % Plt Count 270 (117-477) x10(3)uL MPV 8.3 (6.7-11.0) fL Neut % (Auto) 59.8 (40.3-71.8) % Lymph % (Auto) 28.2 (15.8-45.3) % [place] % (Auto) 9.1 (5.5-15.2) % Eos % (Auto) 1.5 (0.1-6.8) % Baso % (Auto) 1.4 (0.3-3.8) % Neut # (Auto) 5.5 (1.7-6.9) x10-3/uL Lymph # (Auto) 2.6 (0.5-4.5) x10-3/uL [place] # (Auto) 0.8 (0.0-1.2) x10-3/uL Eos # (Auto) 0.1 (0.0-0.6) x10-3/uL Baso # (Auto) 0.1 (0.0-0.3) x10-3/uL APTT (24.4-33.2) SECONDS Sodium 143 (135-145) mmol/L Potassium 4.2 (3.5-5.3) mmol/L Chloride 108 (100-110) mmol/L Carbon Dioxide 26 (21-32) mmol/L BUN 17 (7-18) mg/dL Creatinine 1.0 (0.70-1.30) mg/dL Est Cr Clr Drug Dosing 86.41 mL/min Estimated GFR (MDRD) > 60 (>60) BUN/Creatinine Ratio 17.0 (9-20) Glucose 163 H (80-116) mg/dL Calcium 8.4 L (8.6-10.2) mg/dL Total Bilirubin 0.4 (0.1-1.3) mg/dL AST 29 H (5-25) IU/L ALT 33 (12-36) U/L Alkaline Phosphatase 82 (56-112) IU/L Troponin I 527.0 H* (4.0-60.3) pg/mL Total Protein 7.1 (6.0-8.0) g/dL Albumin 3.5 (3.5-5.2) g/dL Globulin 3.6 g/dL Albumin/Globulin Ratio 1.0 Lipase (73-393) U/L 02/02/21 02/02/21 Range/Units 06:25 06:30 WBC (3.2-10.1) x10-3/uL RBC (3.90-5.90) x10(6)uL Hgb (12.9-17.7) g/dL Hct (38.3-50.1) % MCV (80.8-98.7) fL MCH (27.0-33.3) pg MCHC (28.7-35.3) g/dL RDW (12.4-15.0) % Plt Count (117-477) x10(3)uL MPV (6.7-11.0) fL Neut % (Auto) (40.3-71.8) % Lymph % (Auto) (15.8-45.3) % [place] % (Auto) (5.5-15.2) % Eos % (Auto) (0.1-6.8) % Baso % (Auto) (0.3-3.8) % Neut # (Auto) (1.7-6.9) x10-3/uL Lymph # (Auto) (0.5-4.5) x10-3/uL [place] # (Auto) (0.0-1.2) x10-3/uL Eos # (Auto) (0.0-0.6) x10-3/uL Baso # (Auto) (0.0-0.3) x10-3/uL APTT 30.5 (24.4-33.2) SECONDS Sodium (135-145) mmol/L Potassium (3.5-5.3) mmol/L Chloride (100-110) mmol/L Carbon Dioxide (21-32) mmol/L BUN (7-18) mg/dL Creatinine (0.70-1.30) mg/dL Est Cr Clr Drug Dosing mL/min Estimated GFR (MDRD) (>60) BUN/Creatinine Ratio (9-20) Glucose (80-116) mg/dL Calcium (8.6-10.2) mg/dL Total Bilirubin (0.1-1.3) mg/dL AST (5-25) IU/L ALT (12-36) U/L Alkaline Phosphatase (56-112) IU/L Troponin I 322.3 H* (4.0-60.3) pg/mL Total Protein (6.0-8.0) g/dL Albumin (3.5-5.2) g/dL Globulin g/dL Albumin/Globulin Ratio Lipase (73-393) U/L Med Orders - Current: Current Medications Dextrose/Water (50% Dextrose In Water 50 Ml Syringe) 50 ml IVPUSH ASDIRECTED PRN PRN Reason: Hypoglycemia Glucagon (Glucagon,Human Recombinant 1 Mg Vial) 1 mg IM ASDIRECTED PRN PRN Reason: Hypoglycemia Heparin Sodium/Sodium Chloride (Heparin 25,000 Units In 1/2 Ns 500 Ml) 25,000 units in 500 mls @ 17.178 mls/hr IV TITRATE [facility]; Protocol Last Admin: 02/02/21 11:33 Dose: 12 units/kg/hr, 17.178 mls/hr Documented by: Insulin Human Lispro (Insulin Lispro 100 Unit/Ml 3 Ml Kwikpen) 0 unit SUBCUT TIDMEALS PRN; Protocol PRN Reason: Hyperglycemia Lisinopril (Lisinopril 10 Mg Tab) 10 mg PO DAILY [facility] Last Admin: 02/02/21 11:17 Dose: 10 mg Documented by: Nitroglycerin (Nitroglycerin 0.4 Mg Tab.Sl) 0.4 mg SL Q5M PRN PRN Reason: Chest Pain Stop: 02/03/21 10:44 Ondansetron HCl (Ondansetron 4 Mg/2 Ml Sdv) 4 mg IV Q4H PRN PRN Reason: Nausea/Vomiting Rosuvastatin Calcium (Rosuvastatin 10 Mg Tab) 10 mg PO DAILY [facility] Last Admin: 02/02/21 11:16 Dose: 10 mg Documented by: Sodium Chloride (Sodium Chloride 0.9% 10 Ml Syringe) 10 ml FLUSH ASDIRECTED PRN PRN Reason: Keep Vein Open Last Admin: 02/02/21 09:57 Dose: 10 ml Documented by: Discontinued Medications Aspirin (Aspirin 325 Mg Tab.Ec) 325 mg PO ONETIME ONE Stop: 02/02/21 10:46 Last Admin: 02/02/21 11:19 Dose: 325 mg Documented by: Heparin Sodium (Porcine) (Heparin Sodium 5,000 Units/Ml Vial) 4,000 units IVPUSH ONETIME ONE Stop: 02/02/21 10:42 Last Admin: 02/02/21 11:24 Dose: 4,000 units Documented by: Sodium Chloride (Normal Saline) 1,000 mls @ 999 mls/hr IV .BOLUS ONE Stop: 02/01/21 19:55 Last Admin: 02/01/21 19:17 Dose: 999 mls/hr Documented by: Sodium Chloride (Normal Saline) 1,000 mls @ 125 mls/hr IV ASDIRECTED HEIKE Stop: 02/02/21 00:03 Iopamidol (Iopamidol 755 Mg/Ml 75 Ml Bottle) 75 ml IV ONETIME ONE Stop: 02/01/21 19:24 Last Admin: 02/01/21 19:30 Dose: 75 ml Documented by: Metoprolol Tartrate (Metoprolol Tartrate 25 Mg Tab) 12.5 mg PO ONETIME ONE Stop: 02/02/21 10:44 Last Admin: 02/02/21 11:18 Dose: 12.5 mg Documented by: Ondansetron HCl (Ondansetron 4 Mg/2 Ml Sdv) 4 mg IVPUSH ONETIME ONE Stop: 02/01/21 18:57 Last Admin: 02/01/21 19:17 Dose: 4 mg Documented by: Pantoprazole Sodium (Pantoprazole 40 Mg Vial) 40 mg IVPUSH ONETIME ONE Stop: 02/01/21 18:57 Last Admin: 02/01/21 19:17 Dose: 40 mg Documented by: - Exam General: Reports: Alert, Oriented, Cooperative, No Acute Distress Neck: Reports: Trachea Midline Lungs: Reports: Clear to Auscultation, Normal Respiratory Effort Cardiovascular: Reports: Regular Rate, Regular Rhythm GI/Abdominal Exam: Normal Bowel Sounds, Soft, Non-Tender, No Distention (Male) Exam: Deferred Rectal (Males) Exam: Deferred Extremities: No Pedal Edema, Normal Capillary Refill Skin: Reports: Warm, Dry, Intact
--- NOTE | 2021-02-02 12:11 | PCM.HP.2 ---
H&P History of Present Illness - General Date of Service: 02/02/21 Admit Problem/Dx: NSTEMI Source of Information: Patient, EMS Notes Reviewed - History of Present Illness Initial Comments - Free Text/Narative: Jhon presented to ER last night with 2 day history of epigastric pain, nausea, vomiting, diaphoresis, chills. Did not respond to antacids. Pain improved overnight, had Zofran & Pantoprazole in ER. Denies any sinus symptoms, shortness of breath, constipation or diarrhea. He thought he just had a stomach bug so did not present to ER until last night. No dysuria, frequency or hematuria. No rashes, anemia. History of old PA(on EKG), [id number] on insulin, tobacco use, hyperlipidemia, hypertension. Family HX of PA in his dad, CAD in father/mother, Diabetes in father/mother. Used to smoke 1 ppd but down now to 6 cigarettes/day. ER course: CT abdomen/pelvis: negative for any acute findings. WBC 11.6, 9.1. Cr 1.0, glu 92, 163. LFTs within normal limits. 3 sets of EKG: NSR, no ST-T wave changes. Troponin: 1st: 582, 2nd: 527, 3rd: 322 (normal 16-80). Received 1 dose of Zofran & Pantoprazole, nausea/vomiting resolved. Stated epigastric pain resolved. No cardiac medications given overnight. No home medications resumed. He was admitted for observation. No documentation that cardiology was consulted by ER last night for elevated troponin; no history of CHF/CKD to account for elevated troponin. Epigastric Pain Score (Numeric/FACES): 6 - Related Data Allergies/Adverse Reactions: Allergies Allergy/AdvReac Type Severity Reaction Status Date / Time tramadol Allergy Rash Verified 09/25/20 19:24 Home Medications: Home Meds Aspirin [Lo-Dose Aspirin EC] 81 mg PO DAILY 12/19/18 [History] Lisinopril 10 mg PO DAILY 12/19/18 [History] Rosuvastatin [Crestor] 10 mg PO DAILY 03/13/20 [History] Insuln Asp Prot/Insulin Aspart [NovoLOG Mix 70-30] 15 unit SQ ACDINNER 09/25/20 [History] Insuln Asp Prot/Insulin Aspart [NovoLOG Mix 70-30] 25 unit SQ ACBREAKFAST 09/25/20 [History] Nitroglycerin [Nitrostat] 0.4 mg SL Q5M PRN tab.sl 02/02/21 [Rx] Past Medical History HEENT History: Reports: Other (See Below) Other HEENT History: poor dentition Cardiovascular History: Reports: CAD, High Cholesterol, Hypertension Respiratory History: Reports: Other (See Below) Other Respiratory History: chronic smoker. Gastrointestinal History: Reports: Pancreatitis, PUD, Other (See Below) Other Gastrointestinal History: umbilical hernia Musculoskeletal History: Reports: Back Pain, Chronic Psychiatric History: Reports: Addiction Endocrine/Metabolic History: Reports: Diabetes, Type II - Past Surgical History GI Surgical History: Reports: Cholecystectomy, Hernia, Inguinal Musculoskeletal Surgical History: Reports: Other (See Below) Other Musculoskeletal Surgeries/Procedures:: BACK INJECTION Social & Family History - Family History Family Medical History: No Pertinent Family History - Tobacco Use Tobacco Use Status *Q: Current Every Day Tobacco User Years of Tobacco use: 30 Packs/Tins Daily: 0.5 - Caffeine Use Caffeine Use: Reports: None - Recreational Drug Use Recreational Drug Use: No H&P Review of Systems - Review of Systems: Review Of Systems: See Below General: Reports: Chills, Diaphoresis. Denies: Fever HEENT: Reports: No Symptoms Pulmonary: Reports: No Symptoms Cardiovascular: Reports: No Symptoms Gastrointestinal: Reports: Abdominal Pain, Nausea, Vomiting. Denies: Black Stool, Bloody Stool, Constipation, Diarrhea Genitourinary: Reports: No Symptoms Musculoskeletal: Reports: No Symptoms Skin: Reports: No Symptoms Psychiatric: Reports: No Symptoms Neurological: Reports: No Symptoms Hematologic/Lymphatic: Reports: No Symptoms Exam - Exam Exam: See Below - Vital Signs Vital Signs: Last Vital Signs Temp 97.2 F 02/02/21 06:00 Pulse 57 L 02/02/21 11:18 Resp 16 02/02/21 06:00 BP 159/40 H 02/02/21 11:18 Pulse Ox 97 02/02/21 06:00 Weight: 157 lb 12.8 oz - Exam General: Alert, Oriented, Cooperative. No: Mild Distress HEENT: PERRLA, Conjunctiva Clear, EOMI, Hearing Intact, Mucosa Moist & Aline Neck: Trachea Midline Lungs: Clear to Auscultation, Normal Respiratory Effort Cardiovascular: Regular Rate, Regular Rhythm GI/Abdominal Exam: Normal Bowel Sounds, Soft, Non-Tender, No Distention (Male) Exam: Deferred Rectal (Males) Exam: Deferred Extremities: No Pedal Edema, Normal Capillary Refill Peripheral Pulses: 2+: Radial (L), Radial (R) - Patient Data Lab Results Last 24 hrs: Laboratory Results - last 24 hr 02/01/21 02/01/21 02/01/21 Range/Units 19:05 19:05 19:05 WBC 11.6 H (3.2-10.1) x10-3/uL RBC 4.94 (3.90-5.90) x10(6)uL Hgb 15.0 (12.9-17.7) g/dL Hct 45.4 (38.3-50.1) % MCV 91.9 (80.8-98.7) fL MCH 30.4 (27.0-33.3) pg MCHC 33.1 (28.7-35.3) g/dL RDW 12.8 (12.4-15.0) % Plt Count 278 (117-477) x10(3)uL MPV 8.0 (6.7-11.0) fL Neut % (Auto) 71.1 (40.3-71.8) % Lymph % (Auto) 19.4 (15.8-45.3) % [place] % (Auto) 8.4 (5.5-15.2) % Eos % (Auto) 0.5 (0.1-6.8) % Baso % (Auto) 0.6 (0.3-3.8) % Neut # (Auto) 8.3 H (1.7-6.9) x10-3/uL Lymph # (Auto) 2.3 (0.5-4.5) x10-3/uL [place] # (Auto) 1.0 (0.0-1.2) x10-3/uL Eos # (Auto) 0.1 (0.0-0.6) x10-3/uL Baso # (Auto) 0.1 (0.0-0.3) x10-3/uL APTT (24.4-33.2) SECONDS Sodium 143 (135-145) mmol/L Potassium 4.0 (3.5-5.3) mmol/L Chloride 104 D (100-110) mmol/L Carbon Dioxide 25 (21-32) mmol/L BUN 22 H D (7-18) mg/dL Creatinine 1.0 (0.70-1.30) mg/dL Est Cr Clr Drug Dosing 86.41 mL/min Estimated GFR (MDRD) > 60 (>60) BUN/Creatinine Ratio 22.0 H (9-20) Glucose 92 (80-116) mg/dL Calcium 8.5 L (8.6-10.2) mg/dL Total Bilirubin 0.3 (0.1-1.3) mg/dL AST 30 H D (5-25) IU/L ALT 32 D (12-36) U/L Alkaline Phosphatase 91 (56-112) IU/L Troponin I 582.1 H* (4.0-60.3) pg/mL Total Protein 7.5 (6.0-8.0) g/dL Albumin 3.8 (3.5-5.2) g/dL Globulin 3.7 g/dL Albumin/Globulin Ratio 1.0 Lipase 61 L (73-393) U/L 02/01/21 02/02/21 02/02/21 Range/Units 22:05 06:25 06:25 WBC 9.1 (3.2-10.1) x10-3/uL RBC 4.86 (3.90-5.90) x10(6)uL Hgb 15.1 (12.9-17.7) g/dL Hct 44.7 (38.3-50.1) % MCV 92.1 (80.8-98.7) fL MCH 31.0 (27.0-33.3) pg MCHC 33.7 (28.7-35.3) g/dL RDW 13.2 (12.4-15.0) % Plt Count 270 (117-477) x10(3)uL MPV 8.3 (6.7-11.0) fL Neut % (Auto) 59.8 (40.3-71.8) % Lymph % (Auto) 28.2 (15.8-45.3) % [place] % (Auto) 9.1 (5.5-15.2) % Eos % (Auto) 1.5 (0.1-6.8) % Baso % (Auto) 1.4 (0.3-3.8) % Neut # (Auto) 5.5 (1.7-6.9) x10-3/uL Lymph # (Auto) 2.6 (0.5-4.5) x10-3/uL [place] # (Auto) 0.8 (0.0-1.2) x10-3/uL Eos # (Auto) 0.1 (0.0-0.6) x10-3/uL Baso # (Auto) 0.1 (0.0-0.3) x10-3/uL APTT (24.4-33.2) SECONDS Sodium 143 (135-145) mmol/L Potassium 4.2 (3.5-5.3) mmol/L Chloride 108 (100-110) mmol/L Carbon Dioxide 26 (21-32) mmol/L BUN 17 (7-18) mg/dL Creatinine 1.0 (0.70-1.30) mg/dL Est Cr Clr Drug Dosing 86.41 mL/min Estimated GFR (MDRD) > 60 (>60) BUN/Creatinine Ratio 17.0 (9-20) Glucose 163 H (80-116) mg/dL Calcium 8.4 L (8.6-10.2) mg/dL Total Bilirubin 0.4 (0.1-1.3) mg/dL AST 29 H (5-25) IU/L ALT 33 (12-36) U/L Alkaline Phosphatase 82 (56-112) IU/L Troponin I 527.0 H* (4.0-60.3) pg/mL Total Protein 7.1 (6.0-8.0) g/dL Albumin 3.5 (3.5-5.2) g/dL Globulin 3.6 g/dL Albumin/Globulin Ratio 1.0 Lipase (73-393) U/L 02/02/21 02/02/21 Range/Units 06:25 06:30 WBC (3.2-10.1) x10-3/uL RBC (3.90-5.90) x10(6)uL Hgb (12.9-17.7) g/dL Hct (38.3-50.1) % MCV (80.8-98.7) fL MCH (27.0-33.3) pg MCHC (28.7-35.3) g/dL RDW (12.4-15.0) % Plt Count (117-477) x10(3)uL MPV (6.7-11.0) fL Neut % (Auto) (40.3-71.8) % Lymph % (Auto) (15.8-45.3) % [place] % (Auto) (5.5-15.2) % Eos % (Auto) (0.1-6.8) % Baso % (Auto) (0.3-3.8) % Neut # (Auto) (1.7-6.9) x10-3/uL Lymph # (Auto) (0.5-4.5) x10-3/uL [place] # (Auto) (0.0-1.2) x10-3/uL Eos # (Auto) (0.0-0.6) x10-3/uL Baso # (Auto) (0.0-0.3) x10-3/uL APTT 30.5 (24.4-33.2) SECONDS Sodium (135-145) mmol/L Potassium (3.5-5.3) mmol/L Chloride (100-110) mmol/L Carbon Dioxide (21-32) mmol/L BUN (7-18) mg/dL Creatinine (0.70-1.30) mg/dL Est Cr Clr Drug Dosing mL/min Estimated GFR (MDRD) (>60) BUN/Creatinine Ratio (9-20) Glucose (80-116) mg/dL Calcium (8.6-10.2) mg/dL Total Bilirubin (0.1-1.3) mg/dL AST (5-25) IU/L ALT (12-36) U/L Alkaline Phosphatase (56-112) IU/L Troponin I 322.3 H* (4.0-60.3) pg/mL Total Protein (6.0-8.0) g/dL Albumin (3.5-5.2) g/dL Globulin g/dL Albumin/Globulin Ratio Lipase (73-393) U/L Result Diagrams: 02/02/21 06:25 02/02/21 06:25 Sepsis Event Note - Evaluation Sepsis Screening Result: No Definite Risk - Focused Exam Vital Signs: Vital Signs Temp Pulse Resp BP BP Pulse Ox 02/02/21 11:18 57 L 159/40 H 02/02/21 11:17 159/40 H 02/02/21 06:00 97.2 F 16 153/76 H 97 *Q Meaningful Use (ADM) - VTE Risk Assess *Q Each Risk Factor Represents 1 Point: Age 41 - 59 years, Acute myocardial infarction Total Score 1 Point Risk Factors: 2 Each Risk Factor Represents 2 Points: None Total Score 2 Point Risk Factors: 0 Each Risk Factor Represents 3 Points: None Total Score 3 Point Risk Factors: 0 Each Risk Factor Represents 5 Points: None Total Score 5 Point Risk Factors: 0 Venous Thromboembolism Risk Factor Score *Q: 2 - Tobacco (TOB) Core Measure 1:1 Practical Counseling Performed: Yes - Problem List (1) NSTEMI (non-ST elevated myocardial infarction) SNOMED Code(s): 37508317 ICD Code: I21.4 - NON-ST ELEVATION (NSTEMI) MYOCARDIAL INFARCTION Status: Acute Current Visit: Yes (2) Elevated troponin SNOMED Code(s): 689583790, 594783066, 820663909 ICD Code: R77.8 - OTHER SPECIFIED ABNORMALITIES OF PLASMA PROTEINS Status: Acute Current Visit: Yes (3) Diabetes SNOMED Code(s): 54464845 ICD Code: E11.9 - TYPE 2 DIABETES MELLITUS WITHOUT COMPLICATIONS Status: Chronic Current Visit: Yes Qualifiers: Diabetes mellitus type: type 2 Diabetes mellitus nursing home insulin use: with nursing home use (4) HTN (hypertension) SNOMED Code(s): 84364675 ICD Code: I10 - ESSENTIAL (PRIMARY) HYPERTENSION Status: Chronic Current Visit: No (5) Hyperlipidemia SNOMED Code(s): 22641856 ICD Code: E78.5 - HYPERLIPIDEMIA, UNSPECIFIED Status: Chronic Current Visit: No Problem List Initiated/Reviewed/Updated: Yes Orders Last 24hrs: Active Orders 24 hr Category Date Time Status Patient Status [ADT] Routine ADT 02/01/21 22:43 Active Accu Check [Blood Glucose Check, Bedside] [RC] Care 02/02/21 10:47 Active QIDACANDBED Cardiac Monitoring [RC] CONTINUOUS Care 02/01/21 22:44 Active Oxygen Therapy [RC] .PRN Care 02/01/21 22:43 Active Ready for Discharge [RC] PER UNIT ROUTINE Care 02/02/21 11:32 Active Up With Assistance [RC] ASDIRECTED Care 02/01/21 22:42 Active Vital Signs [RC] 00,04,08,12,16,20 Care 02/01/21 22:43 Active NPO [Nothing Per Oral Diet] [DIET] Diet 02/02/21 Lunch Active Abdomen Pelvis w Cont [CT] Stat Exams 02/01/21 19:15 Taken PTT,PARTIAL THROMBOPLSTIN TIME [COAG] Q6H Lab 02/02/21 14:45 Ordered PTT,PARTIAL THROMBOPLSTIN TIME [COAG] Q6H Lab 02/02/21 20:45 Ordered PTT,PARTIAL THROMBOPLSTIN TIME [COAG] Q6H Lab 02/03/21 02:45 Ordered PTT,PARTIAL THROMBOPLSTIN TIME [COAG] Q6H Lab 02/03/21 08:45 Ordered PTT,PARTIAL THROMBOPLSTIN TIME [COAG] Q6H Lab 02/03/21 14:45 Ordered PTT,PARTIAL THROMBOPLSTIN TIME [COAG] Q6H Lab 02/03/21 20:45 Ordered Dextrose 50% in Water Med 02/02/21 10:47 Active 50 ml IVPUSH ASDIRECTED PRN Glucagon,Human Recombinant [GlucaGen] Med 02/02/21 10:47 Active 1 mg IM ASDIRECTED PRN Heparin Sodium/0.45% NaCl [Heparin 25,000 Units in 1/2 Med 02/02/21 10:45 Active NS 500 ML] 25,000 units in 500 ml IV TITRATE Insulin Lispro [HumaLOG] Med 02/02/21 10:47 Active See Protocol SUBCUT TIDMEALS PRN Nitroglycerin [Nitrostat] Med 02/02/21 10:43 Active 0.4 mg SL Q5M PRN Ondansetron [Zofran] Med 02/01/21 22:42 Active 4 mg IV Q4H PRN Rosuvastatin [Crestor] Med 02/02/21 10:30 Active 10 mg PO DAILY Sodium Chloride 0.9% [Saline Flush] Med 02/01/21 18:55 Active 10 ml FLUSH ASDIRECTED PRN lisinopriL [Prinivil] Med 02/02/21 10:30 Active 10 mg PO DAILY Saline Lock Insert [OM.PC] Routine Oth 02/01/21 18:55 Ordered Resuscitation Status Routine Resus Stat 02/01/21 22:42 Ordered EKG 12 Lead [EK] AM Ther 02/02/21 05:11 Ordered EKG 12 Lead [EK] Routine Ther 02/01/21 22:00 Ordered EKG 12 Lead [EK] Stat Ther 02/01/21 18:55 Ordered Medication Orders Dextrose/Water (50% Dextrose In Water 50 Ml Syringe) 50 ml IVPUSH ASDIRECTED PRN PRN Reason: Hypoglycemia Glucagon (Glucagon,Human Recombinant 1 Mg Vial) 1 mg IM ASDIRECTED PRN PRN Reason: Hypoglycemia Heparin Sodium/Sodium Chloride (Heparin 25,000 Units In 1/2 Ns 500 Ml) 25,000 units in 500 mls @ 17.178 mls/hr IV TITRATE HEIKE; Protocol Last Admin: 02/02/21 11:33 Dose: 12 units/kg/hr, 17.178 mls/hr Documented by: SERG Cosigned by: TRAMAINE Insulin Human Lispro (Insulin Lispro 100 Unit/Ml 3 Ml Kwikpen) 0 unit SUBCUT TIDMEALS PRN; Protocol PRN Reason: Hyperglycemia Lisinopril (Lisinopril 10 Mg Tab) 10 mg PO DAILY [facility] Last Admin: 02/02/21 11:17 Dose: 10 mg Documented by: SERG Nitroglycerin (Nitroglycerin 0.4 Mg Tab.Sl) 0.4 mg SL Q5M PRN PRN Reason: Chest Pain Stop: 02/03/21 10:44 Ondansetron HCl (Ondansetron 4 Mg/2 Ml Sdv) 4 mg IV Q4H PRN PRN Reason: Nausea/Vomiting Rosuvastatin Calcium (Rosuvastatin 10 Mg Tab) 10 mg PO DAILY [facility] Last Admin: 02/02/21 11:16 Dose: 10 mg Documented by: SERG Sodium Chloride (Sodium Chloride 0.9% 10 Ml Syringe) 10 ml FLUSH ASDIRECTED PRN PRN Reason: Keep Vein Open Last Admin: 02/02/21 09:57 Dose: 10 ml Documented by: SERG Assessment/Plan Comment:: 1. Admitted observation for Epigastric pain, Elevated troponin. 2. NSTEMI: Spoke with Dr Jeronimo, [facility], CBC/CMP normal. Troponin(high sensitivity): 582, 567, 322; 3 sets of normal sinus rhythm EKG, no signs of ischemia. Aspirin 325 mg, Lisinopril 10 mg, Crestor 10 mg given. Metoprolol 12.5 mg x 1 added. PTT 30.5. Heparin bolus 4000 units given, heparin drip started at 12 units/kg/hr(17.178ml/hr). He had breakfast, made NPO for anticipated miranda ogram on arrival to [place]. Will go by ground ambulance to [place]. CT abdomen/pelvis: no acute findings. Epigastric pain resolved. NSTEMI most likely occurred 2-3 days ago at onset of symptoms but patient thought he just had a stomach bug. 3. DM: morning Novolog 70/30 was not given, BS 163 this morning. NPO at 10am. 4. Diet: NPO. 5. CODE STATUS: FULL. 6. Discharge plan: Transfer to [facility] for interventional cardiology. - Mortality Measure Prognosis:: Good
[2021-02-02 14:50] VITALS: BP 164/80; PULSE 98
[2021-02-02] MEDS ORDERED: Non-Formulary Medication 1 Each (Insuln Asp Prot/Insulin Aspart [Novolog Mix 70-30] 100 UN SQ SCH (17:30)
--- NOTE | 2021-02-06 17:49 | PCM.EKG ---
#1 Interpretation EKG Date: 02/02/21 Time: 05:49 Rhythm: NSR Rate (Beats/Min): 64 [place]: Normal P-Wave: Present QRS: Normal Comparison: No Change
== END 2021-02-02 11:55 ==
LOC: FB.ED 18:01 → FB.MS 22:44
PROVIDERS: ADMIT Family Medicine; ATTEND Family Medicine
DX: R10.13 Epigastric pain (principal); R11.2 Nausea with vomiting, unspecified; E11.9 Type 2 diabetes mellitus without complications; I25.10 Atherosclerotic heart disease of native coronary artery without angina pectoris; E78.00 Pure hypercholesterolemia, unspecified; I10 Essential (primary) hypertension; F17.210 Nicotine dependence, cigarettes, uncomplicated; I25.2 Old myocardial infarction; Z79.899 Other long term (current) drug therapy; Z79.4 Long term (current) use of insulin; Z79.82 Long term (current) use of aspirin
CPT/HCPCS: 36415; 74177; 80053; 83690; 84484; 85025; 85730; 93005; 96365; 96374; 96375; 99285-25; A9270-GY; C9113; G0378; J1644; J1815; J2405; J7030; Q9967

== ENCOUNTER 2022-02-24 22:04 | Emergency (ER) | payer MEDICAID ==
[2022-02-24] MEDS ORDERED: HYDROmorphone 2 MG/ML SDV IVPUSH ONE (22:14)
[2022-02-24] MEDS ORDERED: Sodium Chloride 0.9% 10 ML Syringe FLUSH PRN (22:14)
[2022-02-24] MEDS ORDERED: Ondansetron 4 MG/2 ML SDV IVPUSH ONE (22:14)
[2022-02-24] MEDS ORDERED: Sodium Chloride 0.9% 1,000 ML IV SCH ×2 (22:15→23:45)
[2022-02-24] MEDS ORDERED: Pantoprazole 40 MG Vial IVPUSH ONE (22:17)
[2022-02-24 22:33] LABS: ESTIMATED GFR 102 mL/min (>60)
[2022-02-24] MEDS ORDERED: Iopamidol 755 Mg/ML 75 ML Bottle IV ONE (22:33)
[2022-02-24] MEDS ORDERED: HYDROmorphone 2 MG/ML SDV IVPUSH PRN (23:36)
[2022-02-25 01:36] VITALS: PULSE 53
[2022-02-25 01:37] VITALS: BP 164/90
== END 2022-02-25 00:45 | disposition home or self-care (01) ==
LOC: FB.ED 22:04
DX: R10.13 Epigastric pain (principal); I25.10 Atherosclerotic heart disease of native coronary artery without angina pectoris; E78.00 Pure hypercholesterolemia, unspecified; I10 Essential (primary) hypertension; E11.9 Type 2 diabetes mellitus without complications; Z88.5 Allergy status to narcotic agent; Z79.899 Other long term (current) drug therapy; Z79.82 Long term (current) use of aspirin; Z79.4 Long term (current) use of insulin; Z90.49 Acquired absence of other specified parts of digestive tract
CPT/HCPCS: 36415; 74177; 80053; 84484; 85025; 86140; 93005; 96361; 96374; 96375; 99284; C9113; J1170; J2405; J3490; J7030; Q9967; 93010; 99283

== ENCOUNTER 2022-03-03 03:44 | Emergency (ER) | payer MEDICAID ==
[2022-03-03] MEDS ORDERED: Ketorolac 30 MG/ML SDV IVPUSH ONE (04:20)
[2022-03-03] MEDS ORDERED: Sodium Chloride 0.9% 10 ML Syringe FLUSH PRN (04:20)
[2022-03-03] MEDS ORDERED: Ondansetron 4 MG/2 ML SDV IVPUSH ONE (04:20)
[2022-03-03] MEDS ORDERED: Sodium Chloride 0.9% 1,000 ML IV ONE (04:20)
[2022-03-03 04:50] LABS: ESTIMATED GFR 102 mL/min (>60)
[2022-03-03] MEDS ORDERED: Morphine 4 MG/ML VIAL IVPUSH ONE (04:51)
[2022-03-03] MEDS ORDERED: Metoclopramide 10 MG/2 ML SDV IVPUSH ONE (05:34)
[2022-03-03] MEDS ORDERED: Pantoprazole 40 MG Vial IVPUSH ONE (05:36)
[2022-03-03] MEDS ORDERED: Magnesium Sulfate/Water 2 GM in Premix Bag 1 BAG IV ONE (05:55)
[2022-03-03] MEDS ORDERED: Sodium Chloride 0.9% 1,000 ML IV SCH (06:00)
== END 2022-03-03 08:40 | disposition home or self-care (01) ==
LOC: FB.ED 03:47
DX: R10.10 Upper abdominal pain, unspecified (principal); R07.9 Chest pain, unspecified; R11.2 Nausea with vomiting, unspecified; I25.10 Atherosclerotic heart disease of native coronary artery without angina pectoris; I10 Essential (primary) hypertension; E11.9 Type 2 diabetes mellitus without complications; Z88.5 Allergy status to narcotic agent; Z79.82 Long term (current) use of aspirin; Z79.899 Other long term (current) drug therapy; Z79.4 Long term (current) use of insulin; Z90.49 Acquired absence of other specified parts of digestive tract; Z86.16 Personal history of COVID-19; Z87.891 Personal history of nicotine dependence
CPT/HCPCS: 36415; 80053; 80307; 83690; 83735; 84484; 85025; 86140; 93005; 93010; 96361; 96365; 96375; 99282; 99285; C9113; J1885; J2270; J2405; J2765; J3475; J7030

== ENCOUNTER 2022-05-10 21:48 | Emergency (ER) | payer MEDICAID ==
[2022-05-10 22:09] VITALS: BP 101/57; PULSE 66
[2022-05-10] MEDS ORDERED: Ketorolac 30 MG/ML SDV IM ONE (22:19)
[2022-05-10] MEDS ORDERED: Amoxicillin 500 MG Cap PO ONE (22:19)
[2022-05-10] MEDS ORDERED: Lidocaine 2% Viscous Solution 15 ML UD PO ONE (22:19)
== END 2022-05-10 23:06 | disposition home or self-care (01) ==
LOC: FB.ED 21:48
DX: K08.89 Other specified disorders of teeth and supporting structures (principal); I25.10 Atherosclerotic heart disease of native coronary artery without angina pectoris; E78.00 Pure hypercholesterolemia, unspecified; I10 Essential (primary) hypertension; E11.9 Type 2 diabetes mellitus without complications; Z88.5 Allergy status to narcotic agent; Z79.82 Long term (current) use of aspirin; Z79.899 Other long term (current) drug therapy; Z79.4 Long term (current) use of insulin; Z86.16 Personal history of COVID-19; Z90.49 Acquired absence of other specified parts of digestive tract; Z87.891 Personal history of nicotine dependence
CPT/HCPCS: 96372; 99282; A9270; J1885

== ENCOUNTER 2022-06-24 18:33 | Emergency (ER) | payer MEDICAID ==
[2022-06-24] MEDS ORDERED: Sodium Chloride 0.9% 10 ML Syringe FLUSH PRN (18:54)
[2022-06-24] MEDS ORDERED: Pantoprazole 40 MG Vial IVPUSH ONE ×2 (18:54→18:55)
[2022-06-24] MEDS ORDERED: HYDROmorphone 2 MG/ML SDV IVPUSH ONE (18:54)
[2022-06-24] MEDS ORDERED: Ketorolac 30 MG/ML SDV IVPUSH ONE (18:55)
[2022-06-24] MEDS ORDERED: Sodium Chloride 0.9% 1,000 ML IV ONE (19:02)
[2022-06-24 19:03] VITALS: BP 138/76; PULSE 67
[2022-06-24] MEDS ORDERED: Sodium Chloride 0.9% 500 ML IV ONE (19:03)
[2022-06-24 19:34] LABS: ESTIMATED GFR 106 mL/min (>60)
== END 2022-06-24 20:33 | disposition home or self-care (01) ==
LOC: FB.ED 18:33
DX: R10.10 Upper abdominal pain, unspecified (principal); G89.29 Other chronic pain; I10 Essential (primary) hypertension; E78.5 Hyperlipidemia, unspecified; I25.10 Atherosclerotic heart disease of native coronary artery without angina pectoris; E11.9 Type 2 diabetes mellitus without complications; Z95.1 Presence of aortocoronary bypass graft; Z88.5 Allergy status to narcotic agent; Z79.82 Long term (current) use of aspirin; Z79.899 Other long term (current) drug therapy
CPT/HCPCS: 36415; 80053; 83690; 85025; 96361; 96374; 96375; 99284-25; C9113; J1170; J1885; J3490; J7040

== ENCOUNTER 2022-06-25 20:06 | Emergency (ER) | payer MEDICAID ==
[2022-06-25] MEDS ORDERED: Morphine 4 MG/ML VIAL IM STA (21:20)
[2022-06-25] MEDS ORDERED: hydrALAZINE 20 MG/ML SDV IM ONE (22:10)
[2022-06-25 22:15] VITALS: BP 194/82; PULSE 58
[2022-06-25] MEDS ORDERED: Ketorolac 30 MG/ML SDV IM ONE (22:44)
== END 2022-06-25 23:30 | disposition home or self-care (01) ==
LOC: FB.ED 20:06
DX: C25.9 Malignant neoplasm of pancreas, unspecified (principal); G89.3 Neoplasm related pain (acute) (chronic); I16.9 Hypertensive crisis, unspecified; I25.10 Atherosclerotic heart disease of native coronary artery without angina pectoris; E78.00 Pure hypercholesterolemia, unspecified; I10 Essential (primary) hypertension; E11.9 Type 2 diabetes mellitus without complications; Z88.5 Allergy status to narcotic agent; Z79.82 Long term (current) use of aspirin; Z79.899 Other long term (current) drug therapy; Z79.4 Long term (current) use of insulin; Z95.1 Presence of aortocoronary bypass graft; Z86.16 Personal history of COVID-19
CPT/HCPCS: 96372; 99283; J0360; J1885; J2270

== ENCOUNTER 2022-07-10 20:55 | Emergency (ER) | payer MEDICAID ==
[2022-07-10] MEDS ORDERED: Ondansetron 8 MG Tab.DIS PO ONE (21:38)
[2022-07-10 22:31] LABS: ESTIMATED GFR 106 mL/min (>60)
[2022-07-10] MEDS ORDERED: hydrOXYzine HCl 50 MG/ML SDV IM ONE (23:02)
[2022-07-10 23:46] VITALS: BP 154/83; PULSE 86
== END 2022-07-10 23:20 | disposition home or self-care (01) ==
LOC: FB.ED 20:55
DX: C25.9 Malignant neoplasm of pancreas, unspecified (principal); I25.10 Atherosclerotic heart disease of native coronary artery without angina pectoris; E78.00 Pure hypercholesterolemia, unspecified; I10 Essential (primary) hypertension; E11.9 Type 2 diabetes mellitus without complications; Z87.891 Personal history of nicotine dependence; Z88.5 Allergy status to narcotic agent; Z79.82 Long term (current) use of aspirin; Z79.4 Long term (current) use of insulin; Z79.899 Other long term (current) drug therapy
CPT/HCPCS: 36415; 80053; 81001; 83605; 83690; 85025; 86140; 87040; 96372; 99284; A9270-GY; J3410

== ENCOUNTER 2022-08-12 18:55 | Emergency (ER) | payer BC, MEDICAID ==
[2022-08-12] MEDS ORDERED: Sodium Chloride 0.9% 10 ML Syringe FLUSH PRN (19:00)
[2022-08-12] MEDS ORDERED: Morphine 4 MG/ML VIAL IVPUSH ONE ×2 (19:00→21:21)
[2022-08-12] MEDS ORDERED: Sodium Chloride 0.9% 1,000 ML IV SCH ×2 (19:00→20:45)
[2022-08-12] MEDS ORDERED: Ondansetron 4 MG/2 ML SDV IVPUSH ONE (19:00)
[2022-08-12 19:35] LABS: ESTIMATED GFR 110 mL/min (>60)
[2022-08-12] MEDS ORDERED: Iopamidol 755 Mg/ML 75 ML Bottle IV ONE (20:50)
[2022-08-12] MEDS ORDERED: Enoxaparin 100 MG/1 ML Syringe SUBCUT STA (21:17)
[2022-08-12 22:04] VITALS: BP 175/78; PULSE 72
== END 2022-08-12 21:55 | disposition home or self-care (01) ==
LOC: FB.ED 18:55
DX: I82.890 Acute embolism and thrombosis of other specified veins (principal); I25.10 Atherosclerotic heart disease of native coronary artery without angina pectoris; C25.9 Malignant neoplasm of pancreas, unspecified; E78.00 Pure hypercholesterolemia, unspecified; I10 Essential (primary) hypertension; E11.9 Type 2 diabetes mellitus without complications; Z88.5 Allergy status to narcotic agent; Z79.82 Long term (current) use of aspirin; Z79.899 Other long term (current) drug therapy; Z79.4 Long term (current) use of insulin; Z90.49 Acquired absence of other specified parts of digestive tract; Z86.16 Personal history of COVID-19; Z87.891 Personal history of nicotine dependence
CPT/HCPCS: 36415; 74177; 80053; 81001; 82150; 83690; 84484; 85025; 93005; 96361; 96372; 96374; 96375; 96376; 99284-25; J1650; J2270; J2405; J3490; J7030; Q9967

== ENCOUNTER 2022-08-27 17:26 | Emergency (ER) | payer MEDICAID ==
[2022-08-27] MEDS ORDERED: Morphine 4 MG/ML VIAL IVPUSH ONE (17:52)
[2022-08-27 18:08] LABS: ESTIMATED GFR 101 mL/min (>60)
[2022-08-27 20:40] VITALS: BP 148/85; PULSE 72
== END 2022-08-27 19:31 | disposition home or self-care (01) ==
LOC: FB.ED 17:26
DX: C25.9 Malignant neoplasm of pancreas, unspecified (principal); D73.5 Infarction of spleen; I25.810 Atherosclerosis of coronary artery bypass graft(s) without angina pectoris; E78.00 Pure hypercholesterolemia, unspecified; I10 Essential (primary) hypertension; E11.9 Type 2 diabetes mellitus without complications; F17.200 Nicotine dependence, unspecified, uncomplicated; Z88.5 Allergy status to narcotic agent; Z79.82 Long term (current) use of aspirin; Z79.4 Long term (current) use of insulin; Z79.899 Other long term (current) drug therapy
CPT/HCPCS: 36415; 71045; 80053; 82150; 83690; 83880; 84484; 85025; 85610; 85730; 93005; 93010; 96374; 99283; 99285-25; J2270

== ENCOUNTER 2023-01-12 21:51 | Emergency (ER) | payer MEDICAID ==
[2023-01-12] MEDS ORDERED: Ketorolac 30 MG/ML SDV IVPUSH ONE (22:06)
[2023-01-12] MEDS ORDERED: HYDROmorphone 2 MG/ML SDV IVPUSH ONE ×2 (22:07→22:13)
[2023-01-12] MEDS ORDERED: Sodium Chloride 0.9% 10 ML Syringe FLUSH PRN (22:10)
[2023-01-12] MEDS ORDERED: Ondansetron 4 MG/2 ML SDV IVPUSH ONE (22:14)
[2023-01-12] MEDS ORDERED: Sodium Chloride 0.9% 1,000 ML IV SCH (22:15)
[2023-01-12 22:26] LABS: BASOPHILS ABSOLUTE AUTO 0.1 x10-3/uL (0.0-0.3); EOSINOPHILS PERCENT AUTO 7.9 % (0.1-6.8); HEMATOCRIT 30.4 % (38.3-50.1); HEMOGLOBIN 9.9 g/dL (12.9-17.7); LYMPHOCYTES ABSOLUTE AUTO 1.4 x10-3/uL (0.5-4.5); LYMPHOCYTES PERCENT AUTO 10.8 % (15.8-45.3); MEAN CORPUSCULAR HEMOGLOBIN 26.8 pg (27.0-33.3); MEAN CORPUSCULAR HGB CONC 32.4 g/dL (28.7-35.3); MEAN CORPUSCULAR VOLUME 82.6 fL (80.8-98.7); MEAN PLATELET VOLUME 7.2 fL (6.7-11.0); MONOCYTES ABSOLUTE AUTO 1.3 x10-3/uL (0.0-1.2); MONOCYTES PERCENT AUTO 10.3 % (5.5-15.2); NEUTROPHILS ABSOLUTE AUTO 8.8 x10-3/uL (1.7-6.9); PLATELET COUNT,PLT 289 x10(3)uL (117-477); RED BLOOD CELL COUNT 3.68 x10(6)uL (3.90-5.90); RED CELL DISTRIBUTION WIDTH 17.6 % (12.4-15.0); WHITE BLOOD CELL COUNT,WBC 12.5 x10-3/uL (3.2-10.1)
[2023-01-12 22:34] LABS: BLOOD UREA NITROGEN,BUN 13 mg/dL (7-18); BUN/CREATININE RATIO 18.6 (9-20); CALCIUM 8.9 mg/dL (8.6-10.2); CARBON DIOXIDE,CO2 26 mmol/L (21-32); CHLORIDE,CL 97 mmol/L (100-110); CREATININE 0.7 mg/dL (0.70-1.30); ESTIMATED GFR 110 mL/min (>60); GLUCOSE RANDOM 317 mg/dL (80-116); POTASSIUM,K 3.9 mmol/L (3.5-5.3); SODIUM,NA 133 mmol/L (135-145)
[2023-01-12 22:41] LABS: A/G RATIO 0.6; ALANINE AMINOTRANSFERASE,ALT 19 U/L (12-36); ALBUMIN 2.6 g/dL (3.5-5.2); ALKALINE PHOSPHATASE 138 IU/L (56-112); AMYLASE 11 U/L (25-115); ASPARTATE AMNIOTRANSFERASE,AST 11 IU/L (5-25); BILIRUBIN TOTAL 0.2 mg/dL (0.1-1.3); PROTEIN TOTAL,TP 6.8 g/dL (6.0-8.0)
[2023-01-12 23:35] VITALS: BP 127/78; PULSE 69
== END 2023-01-12 22:55 | disposition home or self-care (01) ==
LOC: FB.ED 21:51
DX: C25.9 Malignant neoplasm of pancreas, unspecified (principal); E11.65 Type 2 diabetes mellitus with hyperglycemia; D64.9 Anemia, unspecified; I25.10 Atherosclerotic heart disease of native coronary artery without angina pectoris; E78.00 Pure hypercholesterolemia, unspecified; I10 Essential (primary) hypertension; Z95.1 Presence of aortocoronary bypass graft; Z88.5 Allergy status to narcotic agent; Z79.82 Long term (current) use of aspirin; Z79.4 Long term (current) use of insulin; Z79.899 Other long term (current) drug therapy
CPT/HCPCS: 36415; 80053; 82150; 83690; 85025; 96374; 96375; 99284; J1170; J1885; J2405

== ENCOUNTER 2023-01-15 02:18 | Emergency (ER) | payer SELFPAY ==
[2023-01-15] MEDS ORDERED: Sodium Chloride 0.9% 10 ML Syringe FLUSH PRN (02:47)
[2023-01-15] MEDS ORDERED: Ondansetron 4 MG/2 ML SDV IVPUSH ONE (02:59)
[2023-01-15] MEDS ORDERED: Sodium Chloride 0.9% 1,000 ML IV ONE (02:59)
[2023-01-15] MEDS ORDERED: HYDROmorphone 2 MG/ML SDV IVPUSH ONE ×2 (02:59→04:29)
[2023-01-15 03:06] LABS: BASOPHILS ABSOLUTE AUTO 0.1 x10-3/uL (0.0-0.3); BASOPHILS PERCENT AUTO 0.6 % (0.3-3.8); EOSINOPHILS PERCENT AUTO 7.2 % (0.1-6.8); HEMATOCRIT 31.7 % (38.3-50.1); HEMOGLOBIN 10.3 g/dL (12.9-17.7); LYMPHOCYTES ABSOLUTE AUTO 1.2 x10-3/uL (0.5-4.5); LYMPHOCYTES PERCENT AUTO 9.1 % (15.8-45.3); MEAN CORPUSCULAR HEMOGLOBIN 26.7 pg (27.0-33.3); MEAN CORPUSCULAR HGB CONC 32.3 g/dL (28.7-35.3); MEAN CORPUSCULAR VOLUME 82.4 fL (80.8-98.7); MEAN PLATELET VOLUME 7.1 fL (6.7-11.0); MONOCYTES ABSOLUTE AUTO 1.5 x10-3/uL (0.0-1.2); MONOCYTES PERCENT AUTO 11.1 % (5.5-15.2); NEUTROPHILS ABSOLUTE AUTO 9.8 x10-3/uL (1.7-6.9); PLATELET COUNT,PLT 282 x10(3)uL (117-477); RED BLOOD CELL COUNT 3.85 x10(6)uL (3.90-5.90); RED CELL DISTRIBUTION WIDTH 17.8 % (12.4-15.0); WHITE BLOOD CELL COUNT,WBC 13.5 x10-3/uL (3.2-10.1)
[2023-01-15 03:13] LABS: BLOOD UREA NITROGEN,BUN 16 mg/dL (7-18); BUN/CREATININE RATIO 22.9 (9-20); CALCIUM 9.5 mg/dL (8.6-10.2); CARBON DIOXIDE,CO2 28 mmol/L (21-32); CHLORIDE,CL 98 mmol/L (100-110); CREATININE 0.7 mg/dL (0.70-1.30); ESTIMATED GFR 110 mL/min (>60); GLUCOSE RANDOM 306 mg/dL (80-116); POTASSIUM,K 4.3 mmol/L (3.5-5.3); SODIUM,NA 133 mmol/L (135-145)
[2023-01-15 03:27] LABS: A/G RATIO 0.7; ALANINE AMINOTRANSFERASE,ALT 25 U/L (12-36); ALBUMIN 2.9 g/dL (3.5-5.2); ALKALINE PHOSPHATASE 145 IU/L (56-112); ASPARTATE AMNIOTRANSFERASE,AST 18 IU/L (5-25); BILIRUBIN TOTAL 0.4 mg/dL (0.1-1.3); MAGNESIUM 1.6 mg/dL (1.8-2.5); PROTEIN TOTAL,TP 7.2 g/dL (6.0-8.0)
[2023-01-15 03:38] LABS: C-REACTIVE PROTEIN 4.6 mg/dL (0.5-0.9)
[2023-01-15] MEDS ORDERED: Magnesium Oxide 400 MG Tab PO ONE (04:41)
[2023-01-15 05:10] VITALS: BP 170/100; PULSE 87
== END 2023-01-15 05:30 | disposition home or self-care (01) ==
LOC: FB.ED 02:18
DX: C25.9 Malignant neoplasm of pancreas, unspecified (principal); E86.0 Dehydration; E83.42 Hypomagnesemia; I25.810 Atherosclerosis of coronary artery bypass graft(s) without angina pectoris; E78.00 Pure hypercholesterolemia, unspecified; I10 Essential (primary) hypertension; E11.9 Type 2 diabetes mellitus without complications; Z86.16 Personal history of COVID-19; Z88.5 Allergy status to narcotic agent; Z79.82 Long term (current) use of aspirin; Z79.4 Long term (current) use of insulin; Z79.899 Other long term (current) drug therapy; Z87.891 Personal history of nicotine dependence
CPT/HCPCS: 36415; 80053; 83605; 83690; 83735; 85025; 86140; 96361; 96374; 96375; 96376; 99284-25; J1170; J2405; J7030

== ENCOUNTER 2023-01-19 20:57 | Emergency (ER) | payer SELFPAY ==
[2023-01-19] MEDS ORDERED: Morphine 4 MG/ML VIAL IVPUSH ONE (21:22)
[2023-01-19] MEDS ORDERED: Sodium Chloride 0.9% 10 ML Syringe FLUSH PRN (21:22)
[2023-01-19] MEDS ORDERED: Ondansetron 4 MG/2 ML SDV IVPUSH ONE (21:22)
[2023-01-19] MEDS ORDERED: Sodium Chloride 0.9% 1,000 ML IV SCH (21:30)
[2023-01-19] MEDS ORDERED: Iopamidol 755 Mg/ML 100 ML Bottle IV ONE (21:44)
[2023-01-19 22:00] LABS: BLOOD UREA NITROGEN,BUN 12 mg/dL (7-18); CALCIUM 9.2 mg/dL (8.6-10.2); CARBON DIOXIDE,CO2 28 mmol/L (21-32); CHLORIDE,CL 96 mmol/L (100-110); CREATININE 0.6 mg/dL (0.70-1.30); ESTIMATED GFR 115 mL/min (>60); GLUCOSE RANDOM 220 mg/dL (80-116); POTASSIUM,K 3.9 mmol/L (3.5-5.3); SODIUM,NA 134 mmol/L (135-145)
[2023-01-19 22:02] LABS: BASOPHILS ABSOLUTE AUTO 0.1 x10-3/uL (0.0-0.3); BASOPHILS PERCENT AUTO 0.6 % (0.3-3.8); EOSINOPHILS ABSOLUTE AUTO 1.4 x10-3/uL (0.0-0.6); EOSINOPHILS PERCENT AUTO 11.7 % (0.1-6.8); HEMATOCRIT 31.7 % (38.3-50.1); HEMOGLOBIN 10.2 g/dL (12.9-17.7); LYMPHOCYTES ABSOLUTE AUTO 1.2 x10-3/uL (0.5-4.5); MEAN CORPUSCULAR HEMOGLOBIN 26.4 pg (27.0-33.3); MEAN CORPUSCULAR VOLUME 82.6 fL (80.8-98.7); MEAN PLATELET VOLUME 7.4 fL (6.7-11.0); MONOCYTES PERCENT AUTO 8.3 % (5.5-15.2); NEUTROPHILS ABSOLUTE AUTO 8.4 x10-3/uL (1.7-6.9); NEUTROPHILS PERCENT AUTO 69.4 % (40.3-71.8); PLATELET COUNT,PLT 302 x10(3)uL (117-477); RED BLOOD CELL COUNT 3.84 x10(6)uL (3.90-5.90); RED CELL DISTRIBUTION WIDTH 17.8 % (12.4-15.0); WHITE BLOOD CELL COUNT,WBC 12.1 x10-3/uL (3.2-10.1)
[2023-01-19 22:06] LABS: A/G RATIO 0.6; ALANINE AMINOTRANSFERASE,ALT 17 U/L (12-36); ALBUMIN 2.9 g/dL (3.5-5.2); ALKALINE PHOSPHATASE 140 IU/L (56-112); ASPARTATE AMNIOTRANSFERASE,AST 19 IU/L (5-25); BILIRUBIN TOTAL 0.3 mg/dL (0.1-1.3); PROTEIN TOTAL,TP 7.5 g/dL (6.0-8.0)
[2023-01-19 22:12] LABS: C-REACTIVE PROTEIN 4.7 mg/dL (0.5-0.9)
[2023-01-19 22:13] LABS: AMPHETAMINES SCREEN, URINE NEGATIVE (NEGATIVE); BARBITURATE SCREEN,URINE NEGATIVE (NEGATIVE); BENZODIAZEPINES SCREEN,URINE NEGATIVE (NEGATIVE); BUPRENORPHINE SCREEN,URINE NEGATIVE (NEGATIVE); METHADONE SCREEN, URINE NEGATIVE (NEGATIVE); METHAMPHETAMINE SCREEN, URINE NEGATIVE (NEGATIVE); OXYCODONE SCREEN,URINE POSITIVE (NEGATIVE); PROPOXYPHENE SCREEN,URINE NEGATIVE (NEGATIVE); THC SCREEN,URINE POSITIVE (NEGATIVE)
[2023-01-19] MEDS ORDERED: HYDROmorphone 2 MG/ML SDV IVPUSH ONE (22:41)
[2023-01-19 23:25] VITALS: BP 118/67; PULSE 71
== END 2023-01-19 23:24 | disposition home or self-care (01) ==
LOC: FB.ED 20:57
DX: R10.10 Upper abdominal pain, unspecified (principal); R10.13 Epigastric pain; I25.10 Atherosclerotic heart disease of native coronary artery without angina pectoris; E78.00 Pure hypercholesterolemia, unspecified; I10 Essential (primary) hypertension; E11.9 Type 2 diabetes mellitus without complications; Z95.1 Presence of aortocoronary bypass graft; Z88.8 Allergy status to other drugs, medicaments and biological substances; Z79.82 Long term (current) use of aspirin; Z86.16 Personal history of COVID-19
CPT/HCPCS: 36415; 74177; 80053; 80307; 83605; 83690; 84484; 85025; 86140; 93005; 96361; 96374; 96375; 99284; J1170; J2270; J2405; J3490; J7030; Q9967

== ENCOUNTER 2023-01-20 17:19 | Emergency (ER) | payer SELFPAY ==
[2023-01-20] MEDS ORDERED: Morphine 4 MG/ML VIAL IVPUSH ONE (17:48)
[2023-01-20] MEDS ORDERED: Ketorolac 30 MG/ML SDV IVPUSH ONE (17:48)
[2023-01-20] MEDS: Sodium Chloride 0.9% 10 ML Syringe FLUSH PRN ×2 (18:00→18:58)
[2023-01-20 18:13] LABS: HEMATOCRIT 30.5 % (38.3-50.1); HEMOGLOBIN 9.8 g/dL (12.9-17.7); MEAN CORPUSCULAR HEMOGLOBIN 26.3 pg (27.0-33.3); MEAN CORPUSCULAR VOLUME 82.1 fL (80.8-98.7); MEAN PLATELET VOLUME 7.3 fL (6.7-11.0); PLATELET COUNT,PLT 307 x10(3)uL (117-477); RED BLOOD CELL COUNT 3.72 x10(6)uL (3.90-5.90); RED CELL DISTRIBUTION WIDTH 17.6 % (12.4-15.0); WHITE BLOOD CELL COUNT,WBC 15.2 x10-3/uL (3.2-10.1)
[2023-01-20 18:18] LABS: BLOOD UREA NITROGEN,BUN 11 mg/dL (7-18); BUN/CREATININE RATIO 18.3 (9-20); CALCIUM 8.8 mg/dL (8.6-10.2); CARBON DIOXIDE,CO2 29 mmol/L (21-32); CHLORIDE,CL 95 mmol/L (100-110); CREATININE 0.6 mg/dL (0.70-1.30); EST CRCL DRUG DOSING (CG) 117.39 mL/min; ESTIMATED GFR 115 mL/min (>60); GLUCOSE RANDOM 176 mg/dL (80-116); POTASSIUM,K 4.4 mmol/L (3.5-5.3); SODIUM,NA 132 mmol/L (135-145)
[2023-01-20 18:23] LABS: A/G RATIO 0.6; ALANINE AMINOTRANSFERASE,ALT 17 U/L (12-36); ALBUMIN 2.9 g/dL (3.5-5.2); ALKALINE PHOSPHATASE 133 IU/L (56-112); AMYLASE 11 U/L (25-115); ASPARTATE AMNIOTRANSFERASE,AST 17 IU/L (5-25); BILIRUBIN TOTAL 0.4 mg/dL (0.1-1.3); PROTEIN TOTAL,TP 7.5 g/dL (6.0-8.0)
[2023-01-20 18:26] LABS: BAND PERCENT MAN 2 % (0-6); EOSINOPHILS PERCENT MAN 9 % (0-5); LYMPHOCYTES PERCENT MAN 7 % (13-37); MONOCYTES PERCENT MAN 9 % (4-12); SEG NEUTROPHILS PERCENT MAN 73 % (46-82)
[2023-01-20 18:27] LABS: BILIRUBIN,URINE NEGATIVE (NEGATIVE); GLUCOSE,URINE NORMAL (NORMAL); KETONES,URINE NEGATIVE (NEGATIVE); LEUKOCYTE ESTERASE,URINE NEGATIVE (NEGATIVE); NITRITE,URINE NEGATIVE (NEGATIVE); OCCULT BLOOD,URINE NEGATIVE (NEGATIVE); PH,URINE 6.5 (5.0-6.5); PROTEIN,URINE NEGATIVE (NEGATIVE); UROBILINOGEN,URINE NORMAL (NEGATIVE)
[2023-01-20 18:38] LABS: APPEARANCE,URINE CLEAR (CLEAR); BACTERIA,URINE FEW (NS); COLOR,URINE YELLOW (YELLOW); RBC,URINE 0-5 (0-5); SQUAMOUS EPITHELIAL CELLS,UR FEW (NS,R,O); WBC,URINE 0-5 (0-5)
[2023-01-20] MEDS ORDERED: HYDROmorphone 2 MG/ML SDV IVPUSH ONE (18:48)
[2023-01-20 19:18] VITALS: BP 124/61; PULSE 61
== END 2023-01-20 19:14 | disposition home or self-care (01) ==
LOC: FB.ED 17:19
DX: C25.9 Malignant neoplasm of pancreas, unspecified (principal); G89.3 Neoplasm related pain (acute) (chronic); I82.890 Acute embolism and thrombosis of other specified veins; I25.10 Atherosclerotic heart disease of native coronary artery without angina pectoris; E78.00 Pure hypercholesterolemia, unspecified; I10 Essential (primary) hypertension; E11.9 Type 2 diabetes mellitus without complications; Z88.8 Allergy status to other drugs, medicaments and biological substances; Z79.82 Long term (current) use of aspirin; Z95.1 Presence of aortocoronary bypass graft; Z79.4 Long term (current) use of insulin; Z79.899 Other long term (current) drug therapy; Z86.16 Personal history of COVID-19
CPT/HCPCS: 36415; 80053; 81001; 82150; 83690; 85025; 96374; 96375; 99284; J1170; J1642; J1885; J2270; J3490

== ENCOUNTER 2023-01-26 21:40 | Emergency (ER) | payer SELFPAY ==
[2023-01-26] MEDS ORDERED: Ondansetron 4 MG/2 ML SDV IVPUSH ONE (22:28)
[2023-01-26] MEDS ORDERED: HYDROmorphone 2 MG/ML SDV IVPUSH ONE ×2 (22:28→23:58)
[2023-01-26] MEDS ORDERED: Sodium Chloride 0.9% 1,000 ML IV SCH (22:30)
[2023-01-26] MEDS: Sodium Chloride 0.9% 10 ML Syringe FLUSH PRN (22:54)
[2023-01-26 23:15] VITALS: BP 135/74
[2023-01-27] MEDS: Sodium Chloride 0.9% 10 ML Syringe FLUSH PRN (00:06)
[2023-01-27 01:30] VITALS: PULSE 68
== END 2023-01-27 00:12 | disposition home or self-care (01) ==
LOC: FB.ED 21:40
DX: E86.0 Dehydration (principal); Z79.82 Long term (current) use of aspirin; Z79.4 Long term (current) use of insulin; Z79.899 Other long term (current) drug therapy; Z88.5 Allergy status to narcotic agent; I25.10 Atherosclerotic heart disease of native coronary artery without angina pectoris; E78.00 Pure hypercholesterolemia, unspecified; I10 Essential (primary) hypertension; Z95.1 Presence of aortocoronary bypass graft; Z86.16 Personal history of COVID-19; E11.9 Type 2 diabetes mellitus without complications
CPT/HCPCS: 96361; 96374; 96375; 96376; 99283-25; J1170; J1642; J2405; J3490; J7030

== ENCOUNTER 2023-01-27 17:18 | Emergency (ER) | payer MEDICAID ==
[2023-01-27] MEDS ORDERED: Ondansetron 4 MG Tab.DIS PO ONE (17:19)
[2023-01-27] MEDS ORDERED: Sodium Chloride 0.9% 10 ML Syringe FLUSH PRN (18:07)
[2023-01-27] MEDS ORDERED: Ondansetron 4 MG/2 ML SDV IVPUSH ONE (18:07)
[2023-01-27] MEDS ORDERED: HYDROmorphone 2 MG/ML SDV IVPUSH ONE (18:09)
[2023-01-27] MEDS ORDERED: Sodium Chloride 0.9% 1,000 ML IV SCH (18:15)
[2023-01-27 18:21] LABS: BASOPHILS ABSOLUTE AUTO 0.1 x10-3/uL (0.0-0.3); EOSINOPHILS ABSOLUTE AUTO 2.1 x10-3/uL (0.0-0.6); MONOCYTES ABSOLUTE AUTO 1.4 x10-3/uL (0.0-1.2); MONOCYTES PERCENT AUTO 9.5 % (5.5-15.2)
[2023-01-27 18:24] LABS: BASOPHILS PERCENT AUTO 0.9 % (0.3-3.8); EOSINOPHILS PERCENT AUTO 14.2 % (0.1-6.8); HEMATOCRIT 30.9 % (38.3-50.1); LYMPHOCYTES ABSOLUTE AUTO 1.1 x10-3/uL (0.5-4.5); LYMPHOCYTES PERCENT AUTO 7.7 % (15.8-45.3); MEAN CORPUSCULAR HEMOGLOBIN 26.4 pg (27.0-33.3); MEAN CORPUSCULAR HGB CONC 32.4 g/dL (28.7-35.3); MEAN CORPUSCULAR VOLUME 81.2 fL (80.8-98.7); NEUTROPHILS PERCENT AUTO 67.7 % (40.3-71.8); PLATELET COUNT,PLT 336 x10(3)uL (117-477); RED CELL DISTRIBUTION WIDTH 17.5 % (12.4-15.0); WHITE BLOOD CELL COUNT,WBC 14.8 x10-3/uL (3.2-10.1)
[2023-01-27 18:29] LABS: BLOOD UREA NITROGEN,BUN 12 mg/dL (7-18); CARBON DIOXIDE,CO2 29 mmol/L (21-32); CHLORIDE,CL 95 mmol/L (100-110); CREATININE 0.6 mg/dL (0.70-1.30); EST CRCL DRUG DOSING (CG) 117.39 mL/min; ESTIMATED GFR 115 mL/min (>60); GLUCOSE RANDOM 224 mg/dL (80-116); POTASSIUM,K 4.5 mmol/L (3.5-5.3); SODIUM,NA 132 mmol/L (135-145)
[2023-01-27 18:34] LABS: A/G RATIO 0.6; ALANINE AMINOTRANSFERASE,ALT 12 U/L (12-36); ALBUMIN 2.6 g/dL (3.5-5.2); ALKALINE PHOSPHATASE 115 IU/L (56-112); AMYLASE 7 U/L (25-115); ASPARTATE AMNIOTRANSFERASE,AST 14 IU/L (5-25); BILIRUBIN TOTAL 0.4 mg/dL (0.1-1.3); MAGNESIUM 1.6 mg/dL (1.8-2.5); PROTEIN TOTAL,TP 7.3 g/dL (6.0-8.0)
[2023-01-27 19:40] LABS: BILIRUBIN,URINE NEGATIVE (NEGATIVE); GLUCOSE,URINE NORMAL (NORMAL); KETONES,URINE NEGATIVE (NEGATIVE); LEUKOCYTE ESTERASE,URINE NEGATIVE (NEGATIVE); NITRITE,URINE NEGATIVE (NEGATIVE); OCCULT BLOOD,URINE NEGATIVE (NEGATIVE); PROTEIN,URINE NEGATIVE (NEGATIVE); UROBILINOGEN,URINE NORMAL (NEGATIVE)
[2023-01-27 19:42] LABS: COLOR,URINE YELLOW (YELLOW)
[2023-01-27 19:43] LABS: APPEARANCE,URINE CLEAR (CLEAR); BACTERIA,URINE RARE (NS); RBC,URINE 0-5 (0-5); SQUAMOUS EPITHELIAL CELLS,UR RARE (NS,R,O); WBC,URINE 0-5 (0-5)
[2023-01-27] MEDS ORDERED: Sennosides/Docusate Sodium 50-8.6 MG Tab PO ONE (19:58)
[2023-01-27 20:11] VITALS: BP 146/74; PULSE 68
== END 2023-01-27 20:13 | disposition home or self-care (01) ==
LOC: FB.ED 17:18
DX: K59.00 Constipation, unspecified (principal); C25.9 Malignant neoplasm of pancreas, unspecified; I25.10 Atherosclerotic heart disease of native coronary artery without angina pectoris; E78.00 Pure hypercholesterolemia, unspecified; I10 Essential (primary) hypertension; E11.9 Type 2 diabetes mellitus without complications; Z95.1 Presence of aortocoronary bypass graft; Z88.5 Allergy status to narcotic agent; Z79.82 Long term (current) use of aspirin; Z79.4 Long term (current) use of insulin
CPT/HCPCS: 36415; 74019; 80053; 81001; 82150; 83690; 83735; 85025; 96361; 96374; 96375; 99284; A9270; J1170; J2405; J7030; Q0162

== ENCOUNTER 2023-03-05 04:49 | Emergency (ER) | payer BC, MEDICAID ==
[2023-03-05] MEDS ORDERED: Morphine 4 MG/ML VIAL IVPUSH ONE (05:14)
[2023-03-05] MEDS ORDERED: Ondansetron 4 MG/2 ML SDV IVPUSH ONE (05:15)
[2023-03-05] MEDS ORDERED: Naloxone 0.4 MG/ML SDV IVPUSH PRN (05:18)
[2023-03-05] MEDS: fentaNYL 100 MCG/2 ML SDV IVPUSH PRN ×2 (05:23→07:42)
[2023-03-05] MEDS ORDERED: Sennosides 8.8 MG/5 ML ML Syrup 237 ML Bottle PO ONE (06:39)
[2023-03-05] MEDS ORDERED: Sennosides/Docusate Sodium 50-8.6 MG Tab PO ONE (06:52)
[2023-03-05] MEDS ORDERED: fentaNYL 100 MCG/2 ML SDV IVPUSH ONE (08:01)
[2023-03-05 08:48] VITALS: BP 129/71; PULSE 80
== END 2023-03-05 08:45 | disposition home or self-care (01) ==
LOC: FB.ED 04:49
DX: G89.3 Neoplasm related pain (acute) (chronic) (principal); C25.9 Malignant neoplasm of pancreas, unspecified; E11.9 Type 2 diabetes mellitus without complications; I25.10 Atherosclerotic heart disease of native coronary artery without angina pectoris; Z95.1 Presence of aortocoronary bypass graft; Z86.718 Personal history of other venous thrombosis and embolism; Z79.4 Long term (current) use of insulin; Z79.899 Other long term (current) drug therapy; Z88.5 Allergy status to narcotic agent; Z77.22 Contact with and (suspected) exposure to environmental tobacco smoke (acute) (chronic)
CPT/HCPCS: 96374; 96375; 99283-25; A9270-GY; J2270; J2405; J3010

== ENCOUNTER 2023-03-05 18:55 | Emergency (ER) | payer BC ==
[2023-03-05] MEDS ORDERED: Sodium Chloride 0.9% 1,000 ML IV ONE ×2 (19:05)
[2023-03-05] MEDS ORDERED: Ketorolac 30 MG/ML SDV IVPUSH ONE (19:06)
[2023-03-05] MEDS ORDERED: HYDROmorphone 2 MG/ML SDV IVPUSH ONE ×3 (19:06→22:18)
[2023-03-05] MEDS ORDERED: Ondansetron 4 MG/2 ML SDV IVPUSH ONE (19:28)
[2023-03-05 19:30] LABS: BILIRUBIN,URINE NEGATIVE (NEGATIVE); GLUCOSE,URINE >1000 mg/dL (NORMAL); KETONES,URINE NEGATIVE (NEGATIVE); LEUKOCYTE ESTERASE,URINE NEGATIVE (NEGATIVE); NITRITE,URINE NEGATIVE (NEGATIVE); OCCULT BLOOD,URINE NEGATIVE (NEGATIVE); PROTEIN,URINE NEGATIVE (NEGATIVE); UROBILINOGEN,URINE NORMAL (NEGATIVE)
[2023-03-05 19:31] LABS: HEMATOCRIT 29.8 % (38.3-50.1); HEMOGLOBIN 9.6 g/dL (12.9-17.7); MEAN CORPUSCULAR HEMOGLOBIN 25.1 pg (27.0-33.3); MEAN CORPUSCULAR HGB CONC 32.1 g/dL (28.7-35.3); MEAN PLATELET VOLUME 7.1 fL (6.7-11.0); PLATELET COUNT,PLT 399 x10(3)uL (117-477); RED BLOOD CELL COUNT 3.82 x10(6)uL (3.90-5.90); RED CELL DISTRIBUTION WIDTH 17.7 % (12.4-15.0); WHITE BLOOD CELL COUNT,WBC 25.8 x10-3/uL (3.2-10.1)
[2023-03-05 19:34] LABS: BLOOD UREA NITROGEN,BUN 9 mg/dL (7-18); BUN/CREATININE RATIO 12.9 (9-20); CALCIUM 8.8 mg/dL (8.6-10.2); CARBON DIOXIDE,CO2 29 mmol/L (21-32); CHLORIDE,CL 90 mmol/L (100-110); CREATININE 0.7 mg/dL (0.70-1.30); EST CRCL DRUG DOSING (CG) 99.07 mL/min; ESTIMATED GFR 110 mL/min (>60); GLUCOSE RANDOM 325 mg/dL (80-116); POTASSIUM,K 4.6 mmol/L (3.5-5.3); SODIUM,NA 129 mmol/L (135-145)
[2023-03-05 19:35] LABS: APPEARANCE,URINE SLIGHTLY CLOUDY (CLEAR); COLOR,URINE YELLOW (YELLOW); RBC,URINE 0-5 (0-5)
[2023-03-05 19:36] LABS: BACTERIA,URINE MODERATE (NS); SQUAMOUS EPITHELIAL CELLS,UR MODERATE (NS,R,O); WBC,URINE 0-5 (0-5)
[2023-03-05 19:38] LABS: LIPASE < 6 U/L (16-77)
[2023-03-05 19:39] LABS: C-REACTIVE PROTEIN 8.28 mg/dL (<0.33)
[2023-03-05 19:40] LABS: A/G RATIO 0.5; ALANINE AMINOTRANSFERASE,ALT 33 U/L (12-36); ALBUMIN 2.6 g/dL (3.5-5.2); ALKALINE PHOSPHATASE 198 IU/L (56-112); ASPARTATE AMNIOTRANSFERASE,AST 36 IU/L (5-25); BILIRUBIN TOTAL 0.4 mg/dL (0.1-1.3); PROTEIN TOTAL,TP 7.8 g/dL (6.0-8.0)
[2023-03-05 19:43] LABS: BAND PERCENT MAN 3 % (0-6); EOSINOPHILS PERCENT MAN 8 % (0-5); LYMPHOCYTES PERCENT MAN 3 % (13-37); MONOCYTES PERCENT MAN 9 % (4-12); SEG NEUTROPHILS PERCENT MAN 77 % (46-82)
[2023-03-05] MEDS ORDERED: Iopamidol 755 Mg/ML 100 ML Bottle IV ONE (21:01)
[2023-03-06 00:28] VITALS: BP 133/65; PULSE 68
== END 2023-03-06 00:18 ==
LOC: FB.ED 18:55
DX: K56.699 Other intestinal obstruction unspecified as to partial versus complete obstruction (principal); C78.89 Secondary malignant neoplasm of other digestive organs; E88.09 Other disorders of plasma-protein metabolism, not elsewhere classified; E87.1 Hypo-osmolality and hyponatremia; E11.65 Type 2 diabetes mellitus with hyperglycemia; R74.8 Abnormal levels of other serum enzymes; D72.829 Elevated white blood cell count, unspecified; I25.10 Atherosclerotic heart disease of native coronary artery without angina pectoris; Z88.5 Allergy status to narcotic agent; Z79.82 Long term (current) use of aspirin; Z79.4 Long term (current) use of insulin; Z95.1 Presence of aortocoronary bypass graft
CPT/HCPCS: 74019; 74177; 80053; 81001; 83690; 83735; 85025; 86140; 96361; 96374; 96375; 96376; 99285; J1170; J1885; J2405; J7030; Q9967

== ENCOUNTER 2023-03-27 15:25 | Emergency (ER) | payer BC ==
[2023-03-27] MEDS ORDERED: Sodium Chloride 0.9% 10 ML Syringe FLUSH PRN (15:45)
[2023-03-27] MEDS: Ondansetron 4 MG/2 ML SDV IVPUSH ONE (16:03)
[2023-03-27] MEDS: Sodium Chloride 0.9% 500 ML IV ONE (16:03)
[2023-03-27] MEDS: HYDROmorphone 2 MG/ML SDV IVPUSH ONE ×2 (16:04→16:33)
[2023-03-27 16:28] LABS: BLOOD UREA NITROGEN,BUN 21 mg/dL (7-18); CALCIUM 8.3 mg/dL (8.6-10.2); CARBON DIOXIDE,CO2 28 mmol/L (21-32); CHLORIDE,CL 99 mmol/L (100-110); CREATININE 0.6 mg/dL (0.70-1.30); ESTIMATED GFR 115 mL/min (>60); GLUCOSE RANDOM 241 mg/dL (80-116); POTASSIUM,K 4.6 mmol/L (3.5-5.3); SODIUM,NA 132 mmol/L (135-145)
[2023-03-27 16:34] LABS: A/G RATIO 0.5; ALANINE AMINOTRANSFERASE,ALT 14 U/L (12-36); ALKALINE PHOSPHATASE 113 IU/L (56-112); ASPARTATE AMNIOTRANSFERASE,AST 12 IU/L (5-25); BILIRUBIN TOTAL 0.3 mg/dL (0.1-1.3); MAGNESIUM 1.6 mg/dL (1.8-2.5); PROTEIN TOTAL,TP 5.4 g/dL (6.0-8.0)
[2023-03-27] MEDS: Sodium Chloride 0.9% 1,000 ML IV SCH (16:38)
[2023-03-27 16:44] LABS: WHITE BLOOD CELL COUNT,WBC 22.9 x10-3/uL (3.2-10.1)
[2023-03-27 16:46] LABS: HEMOGLOBIN 5.3 g/dL (12.9-17.7)
[2023-03-27 16:47] LABS: HEMATOCRIT 16.7 % (38.3-50.1); MEAN CORPUSCULAR HEMOGLOBIN 26.5 pg (27.0-33.3); MEAN CORPUSCULAR HGB CONC 31.7 g/dL (28.7-35.3); MEAN CORPUSCULAR VOLUME 83.6 fL (80.8-98.7); MEAN PLATELET VOLUME 7.6 fL (6.7-11.0); PLATELET COUNT,PLT 333 x10(3)uL (117-477)
[2023-03-27 16:49] LABS: C-REACTIVE PROTEIN 5.8 mg/dL (<0.33)
[2023-03-27 16:50] LABS: ALBUMIN 1.7 g/dL (3.5-5.2)
[2023-03-27 17:13] LABS: BILIRUBIN,URINE NEGATIVE (NEGATIVE); GLUCOSE,URINE 50 mg/dL (NORMAL); KETONES,URINE NEGATIVE (NEGATIVE); LEUKOCYTE ESTERASE,URINE NEGATIVE (NEGATIVE); NITRITE,URINE NEGATIVE (NEGATIVE); OCCULT BLOOD,URINE NEGATIVE (NEGATIVE); PROTEIN,URINE NEGATIVE (NEGATIVE); UROBILINOGEN,URINE NORMAL (NEGATIVE)
[2023-03-27 17:15] LABS: APPEARANCE,URINE CLEAR (CLEAR); BACTERIA,URINE OCCASIONAL (NS); COLOR,URINE YELLOW (YELLOW); RBC,URINE 0-5 (0-5); SQUAMOUS EPITHELIAL CELLS,UR OCCASIONAL (NS,R,O); WBC,URINE 0-5 (0-5)
[2023-03-27 17:37] LABS: BAND PERCENT MAN 7 % (0-6); EOSINOPHILS PERCENT MAN 15 % (0-5); LYMPHOCYTES PERCENT MAN 10 % (13-37); MONOCYTES PERCENT MAN 6 % (4-12); SEG NEUTROPHILS PERCENT MAN 62 % (46-82)
[2023-03-27] MEDS: Pantoprazole 40 MG Vial IVPUSH ONE (17:56)
[2023-03-27] MEDS: Metoclopramide 10 MG/2 ML SDV IVPUSH ONE (18:03)
[2023-03-27 18:52] VITALS: BP 111/55; PULSE 92
== END 2023-03-27 18:40 ==
LOC: FB.ED 15:25
DX: K92.2 Gastrointestinal hemorrhage, unspecified (principal); D62 Acute posthemorrhagic anemia; E11.9 Type 2 diabetes mellitus without complications; Z79.01 Long term (current) use of anticoagulants; Z79.82 Long term (current) use of aspirin; Z79.84 Long term (current) use of oral hypoglycemic drugs
CPT/HCPCS: 36415; 80053; 81001; 82272; 83605; 83690; 83735; 85025; 86140; 86850; 86900; 86901; 86920; 86922; 96361; 96374; 96375; 99285; C9113; J1170; J2405; J2765; J7030; J7040